=== PATIENT | female | born 1945 | race Caucasian/White ===

== ENCOUNTER 2016-07-09 05:51 | Outpatient (CLI) | payer MEDICARE ==
[~2016-07-09] VITALS: Ht 158.8 cm; Wt 83.2 kg
--- NOTE | ~2016-07-09 | HEMODYNAMI ---
PATIENT:BRADEN FITCH MEDICAL RECORD: [id number] : 43 LOCATION:DKatjaCAT ADMISSION DATE: 07/09/16 Generatedon:07/09/20168:59 Patient name: BRADEN FITCH Patient #: [id number] SSN: : 1945 Date of study: 07/09/2016 Page: Of Hemodynamic Procedure Report Patient Data Patient Demographics Procedure consent was obtained First Name: BRADEN Gender: Female Last Name: LITTLE : 1945 [facility] Initial: J Age: 71 year(s) Patient #: [id number] Race: Additional ID: [id number] Contact details Address: [address] [place], [place] [id number] State: [place] City: [place] Zip code: [address] Past Medical History Allergies Allergen Reaction Date Comments Reported Sulfa drugs 08/13/2014 Codeine 08/13/2014 Morphine 08/13/2014 Admission Admission Data Admission Date: 07/09/2016 Admission Time: 5:51 Admit Source: Other Insurance Payor: Medicare Height (in.): 62 BSA: 1.84 (m2) Height (cm.): 157.48 BMI: 33.47 (kg/m2) Weight (lbs.): 183 Weight (kg.): 83.01 Lab Results Lab Result Date: 07/09/2016 Lab Result Time: 0:00 Biochemistry Name Units Result Min Max Creatinine mg/dl 0.5 -*(----)-- 0.6 1.3 CBC Name Units Result Min Max Hemoglobin g/dl 12.1 *-(----)-- 13.5 17.5 Procedure Procedure Types Cath Procedure Diagnostic Procedure [facility] w/Coronaries PCI Procedure PTCA Initial Procedure Description Procedure Date Procedure Date: 07/09/2016 Procedure Start Time: 8:42 Procedure End Time: 8:58 Procedure Staff Name Function Yehuda Stevens MD Performing Physician Graham Dorantes RT Scrub Armond Metz RN Nurse Shannon Wiley RT Monitor Wellington Rodriguez RT Furnace And Wash Equipment Operator Procedure Data Cath Procedure Fluoroscopy Diagnostic fluoroscopy Total fluoroscopy Time: 3.3 time: 3.3 min min Diagnostic fluoroscopy Total fluoroscopy dose: 750 dose: 750 mGy mGy Contrast Material Contrast Material Type Amount (ml) Isovue 300 93 Entry Location Entry Primary Successful Side Size Upsize Upsize Entry Closure Dennis ccessful Closure Location (Fr) 1 (Fr) 2 (Fr) Remarks Device Remarks Radial Right 6 Fr Mechanical artery Short Compression Estimated blood loss: 10 ml Diagnostic catheters Device Type Used For End Catheter Placement Terumo 5Fr Sunnyside 110cm LV Angiography catheter Terumo 5Fr Sunnyside 110cm Right Coronary catheter Angiography Procedure Complications No complications Procedure Medications Medication Administration Route Dosage Oxygen NC 2 l/min Lidocaine 2% added to field 20 Heparin Flush Bag added to field 2 bags (1000units/500ml NS) 0.9% NaCl I.V. 100 ml/hr Benadryl I.V. 50 mg Versed I.V. 1 mg Fentanyl I.V. 50 mcg Versed I.V. 1 mg Fentanyl I.V. 50 mcg Radial Cocktail I.A. 1 syringe (Verapomil 2mg/Nitro 400mcg/Heparin 1500units) Versed I.V. 1 mg Fentanyl I.V. 50 mcg Fentanyl I.V. 50 mcg Heparin Bolus I.V. 4000 units Versed I.V. 1 mg Hemodynamics Rest BSA: 1.84 (m2) HGB: 12.1 (g/dl) O2 Consumption: Estimated: 156.18 (ml/min) O2 Co nsumption indexed: Estimated:84.88 (ml/min/m) Heart Rate: 52 (bpm) Snapshots Pre Cath Intra NCS Post Cath Vital Signs Time Heart Resp SPO2 etCO2 [id number] NIBP (mmHg) Rhythm Pain Sedation Rate (ipm) (%) (mmHg) (mmHg) Status Level (bpm) 8:24:04 53 17 99 0 0 164/66(85) NSR 0 (11) 10(A) , No pain 8:29:13 54 21 98 0 0 182/100(139) NSR 0 (11) 10(A) , No pain 8:33:25 52 19 99 0 0 167/89(141) NSR 0 (11) 10(A) , No pain 8:37:43 53 19 97 0 0 161/97(120) NSR 0 (11) 10(A) , No pain 8:41:59 51 16 99 0 0 142/91(115) NSR 0 (11) 10(A) , No pain 8:46:17 60 17 96 0 0 135/80(101) NSR 0 (11) 9(A) , No pain 8:50:29 60 16 94 0 0 134/79(108) NSR 0 (11) 9(A) , No pain 8:54:38 62 16 95 0 0 140/80(115) NSR 0 (11) 9(A) , No pain 8:57:33 59 16 96 0 0 147/89(124) NSR 0 (11) 10(A) , No pain Medications Time Medication Route Dose Verified Delivered Reason Notes Effectiveness by by 8:17:05 Oxygen NC 2 l/min Yehuda Buffie used for Hilda Metz RN procedure 8:17:16 Lidocaine 2% added 20ml Yehudaaisha Blackman for local to vial Hilda Stevens MD anesthetic field 8:17:24 Heparin Flush added 2 bags Yehuda Blackman used for Bag to Hilda Stevens MD procedure (1000units/500ml field NS) 8:17:35 0.9% NaCl I.V. 100 Yehuda Leahy Per physician ml/hr Hilda Metz RN 8:17:44 Benadryl I.V. 50 mg Yehuda Leahy used for Hilda Metz RN procedure 8:39:15 Versed I.V. 1 mg Yehuda Leahy for sedation Hilda Metz RN 8:39:21 Fentanyl I.V. 50 mcg Yehuda Leahy for sedation Hilda Metz RN 8:44:43 Versed I.V. 1 mg Yehuda Nazarioie for sedation Hilda Metz RN 8:44:47 Fentanyl I.V. 50 mcg Yehuda Leahy for sedation Hilda Metz RN 8:45:02 Radial Cocktail I.A. 1 Yehuda Blackman for (Verapomil syringe Hilda Stevens MD vasodilation 2mg/Nitro 400mcg/Heparin 1500units) 8:47:08 Versed I.V. 1 mg Yehuda Blackman for sedation Hilda Stevens MD 8:47:11 Fentanyl I.V. 50 mcg Yehuda Leahy for sedation Hilda Metz RN 8:47:14 Fentanyl I.V. 50 mcg Yehuda Lehay for sedation Hilda Metz RN 8:51:09 Heparin Bolus I.V. 4000 Yehuda Leahy for verif ied units Hilda Metz RN anticoagulation with dr stevens 8:53:13 Versed I.V. 1 mg Yehuda Leahy for sedation Hilda Metz RN Procedure Log Time Note 8:00:10 Informed consent obtained and on chart 8:00:38 Wellington Rodriguez RT(R) sent for patient. Start room use. 8:00:40 Time tracking: Regular hours 8:00:44 Plan of Care:Hemodynamics will remain stable., Cardiac rhythm will remain stable., Comfort level will be maintained., Respiratory function will remain adequate., Patient/ family verbilizes understanding of procedure., Procedure tolerated without complication., Recovers from procedure without complications.. 8:00:49 ACC Patient presents with Unstable Angina CCS Anginal Class 3--Marked limitation of physical activity, angina occurs with ordinary activity.. 8:09:47 Patient received from Outpatients to [facility] 2 Alert and oriented. Tansferred to table in Supine position. 8:09:48 Warm blankets applied, and mariluz hugger turned on for patient comfort. 8:09:48 Correct patient and procedure confirmed by team. 8:09:49 ECG and BP/O2 sat monitors applied to patient. 8:11:32 Full Disclosure recording started 8:13:19 H&P Date Dictated: 07/06/2016 Within 30 days and on chart., H&P Addendum completed by physician on day of procedure. (MUST COMPLETE FOR ALL OUTPATIENTS). 8:13:22 Pre-procedure instructions explained to patient. 8:13:23 Pre-op teaching completed and patient verbalized understanding. 8:13:24 Family in waiting room. 8:13:25 Patient NPO since Midnight. 8:13:30 Previous problem with sedation/anesthesia? No ? 8:13:32 Snore? Yes 8:13:33 Sleep apnea? No 8:13:34 Deviated septum? No 8:13:35 Opens mouth fully? Yes 8:13:35 Sticks out tongue? Yes 8:13:37 Airway obstruction? No ? 8:13:40 Dentures? Yes In 8:14:00 Is the patient allergic to Iodine/contrast media? No. 8:14:01 Is patient on blood thinner?Yes 8:14:04 ACC The patient was administered the following blood thiners within the last 24 hours: ACCPlavix 8:14:07 Patient diabetic? No. 8:14:11 Pre procedure: right dorsailis pedis pulse 2+ Normal; easily identifiable; not easily obliterated 8:14:19 Patient pain scale 0/10 ?. 8:14:24 IV patent on arrival in left hand with 0.9% NaCl at [facility]. 8:14:44 Lab Result : Creatinine 0.5 mg/dl 8:14:44 Lab Result : Hemoglobin 12.1 g/dl 8:14:50 Lab results completed and on chart. 8:14:55 Right groin area was prepped with chlora-prep and draped in sterile fashion 8:14:56 Alarms reviewed by R. N. 8:14:57 Sharps counted by scrub and verified by R.N. 8:15:19 Acist Syringe opened to sterile field. 8:15:19 Bag Decanter opened to sterile field. 8:15:20 Cardinal Cath Pack opened to sterile field. 8:15:21 St Amador 260cm J .035 wire opened to sterile field. 8:15:22 Acist Hand Control opened to sterile field. 8:15:22 Acist Manifold opened to sterile field. 8:15:22 Cordis Infinity 5Fr Multipack catheter opened to sterile field. 8:15:23 Tegaderm 4 x 4 opened to sterile field. 8:17:05 Oxygen 2 l/min NC was given by Armond Metz RN; used for procedure; 8:17:16 Lidocaine 2% 20ml vial added to field was given by Yehuda Stevens MD; for local anesthetic; 8:17:24 Heparin Flush Bag (1000units/500ml NS) 2 bags added to field was given by Yehuda Stevens MD; used for procedure; 8:17:35 0.9% NaCl 100 ml/hr I.V. was given by Armond Metz RN; Per physician; 8:17:44 Benadryl 50 mg I.V. was given by Armond Metz RN; used for procedure; 8:22:46 Vital chart was started 8:22:53 Rhythm: sinus rhythm 8:26:00 Admit Source: Other 8:26:05 Insurance Payor : Medicare 8:26:15 Patient Height : 62 inches 8:26:23 Patient Weight : 183 lbs 8:27:25 Physician paged 8:27:42 Baseline sample Acquired. 8:28:03 Zero performed for pressure channel P1 8:28:17 Zero performed for pressure channel P1 8:38:32 Final Timeout: patient, procedure, and site verified with staff and physician. All members of the team are in agreement. 8:38:35 Right groin site verified by team. 8:38:38 Physical assessment completed. ASA score P 2 - A patient with mild systemic disease as per Yehuda Stevens MD. 8:38:41 Sedation plan: IV Moderate Sedation Versed, Fentanyl 8:39:15 Versed 1 mg I.V. was given by Armond Metz RN; for sedation; 8:39:21 Fentanyl 50 mcg I.V. was given by Armond Metz RN; for sedation; 8:40:32 Procedure started. 8:42:33 Local anesthetic to right radial artery with Lidocaine 2% by Yehuda Stevens MD.INITIAL ACCESS ONLY 8:43:57 A 6 Fr Short sheath was inserted into the Right Radial artery 8:44:25 Terumo 6Fr Slender Glidesheath opened to sterile field. 8:44:39 A Terumo 5Fr Sunnyside 110cm catheter was advanced over the wire and used for LV Angiography. 8:44:43 Versed 1 mg I.V. was given by Armond Metz RN; for sedation; 8:44:47 Fentanyl 50 mcg I.V. was given by Armond Metz RN; for sedation; 8:45:02 Radial Cocktail (Verapomil 2mg/Nitro 400mcg/Heparin 1500units) 1 syringe I.A. was given by Yehuda Stevens MD; for vasodilation; 8:45:28 A Terumo 5Fr Sunnyside 110cm catheter was advanced over the wire and used for Right Coronary Angiography. 8:46:42 Medtronic Launcher 6Fr EBU 3.5 guide catheter opened to sterile field. 8:47:05 Catheter removed. 8:47:08 Versed 1 mg I.V. was given by Yehuda Stevens MD; for sedation; 8:47:11 Fentanyl 50 mcg I.V. was given by Buffie Metz RN; for sedation; 8:47:14 Fentanyl 50 mcg I.V. was given by Armond Metz RN; for sedation; 8:47:30 6 Fr EBU 3.5 guide catheter was inserted over the wire 8:47:51 LCA angiography performed. 8:49:22 Grijalva Whisper J 300cm 0.014 guide wire opened to sterile field. 8:49:23 Scutum BasixCompak Inflation Kit opened to sterile field. 8:50:13 ACC PCI Site: OM1 has 75% stenosis. 8:50:16 ACC Pre-intervention LONG Flow is 3. 8:50:24 Whisper wire advanced. 8:51:09 Heparin Bolus 4000 units I.V. was given by Armond Metz RN; for anticoagulation; verified with dr stevens 8:51:56 Inflation number: 1 A Picabo Sci Aurora 2.5 X 15 balloon was prepped and advanced across the 1st Ob Nella, then inflated to 17 PAULETTE for 0:10 (min:sec). 8:52:30 Inflation number: 2 The Picabo Sci Aurora 2.5 X 15 balloon was reinflated across the 1st Ob Nella, to 17 PAULETTE for 0:07 (min:sec). 8:52:47 ACC Post-intervention LONG Flow is 3. 8:52:52 Balloon removed over the wire. 8:52:53 Wire removed. 8:52:54 Guide catheter removed. 8:53:02 Sheath removed intact; hemostasis achieved with Mechanical Compression to the Right Radial artery. 8:53:04 Procedure ended.(Physican Out) 8:53:13 Versed 1 mg I.V. was given by Armond Metz RN; for sedation; 8:53:55 Fluoroscopy time 03.30 minutes. 8:54:01 Fluoroscopy dose: 750 mGy 8:54:01 Flurop Dose total: 750 8:54:24 Contrast amount:Isovue 300 93ml. 8:54:25 Sharps counted by scrub and verified by R.N. 8:54:31 TR band inflated with 12cc of air. 8:54:32 Insertion/operative site no bleeding no hematoma. 8:54:39 Post right radial artery:stable, clean and dry 8:54:40 Post Procedure Pulses reassessed and unchanged 8:54:46 Post-procedure physical assessment completed. ASA score P 2 - A patient with mild systemic disease as per Yehuda Stevens MD. 8:54:48 Post procedure rhythm: unchanged. 8:54:51 Estimated blood loss: 10 ml 8:54:52 Post procedure instruction explained to patient.Patient verbalizes understanding. 8:54:52 Patient needs reinforcement of post procedure teaching. 8:54:59 Procedure type changed to Cath procedure, Diagnostic procedure, LHC, LHC w/Coronaries, PCI procedure, PTCA Initial 8:55:04 Procedure Complication : No complications 8:55:06 See physician's report for complete and final results. 8:55:25 Report given to Post Procedure Room. 8:55:28 Patient transfered to Post Procedure Room with Stretcher. 8:56:05 Procedure and supply charges have been captured, reviewed, submitted and are correct. 8:58:38 Vital chart was stopped 8:58:40 Procedure ended. 8:58:40 Full Disclosure recording stopped 8:58:59 End room use (Document Last) Intervention Summary Intervention Notes Time ActionType Lesion and Equipment Action# Pressure Duration Attributes Used 8:51:56 Inflate 1st Ob Nella Picabo 1 17 00:10 balloon Sci Aurora 2.5 X 15 balloon 8:52:30 Reinflate 1st Ob Nella Picabo 2 17 00:07 balloon Sci Aurora 2.5 X 15 balloon Device Usage Item Name Manufacture Quantity Catalog Number Hospital Part Current Mini mal Lot# / Charge Number Stock Stock Serial# Code Acist Acist 1 [id number] 084344 [id number] 20 Syringe [employer] Inc Bag Microtek 1 2002S 159005 75424 163475 5 Decanter [employer] Inc. Cardinal Cardinal 1 [id number] 146356 30857 294628 [address] Amador 1 [id number] 275108 201340 251243 30 260cm J .035 wire Acist Hand Acist 1 27022 844815 380175 784823 5 Control Medical Systems Inc Acist Acist 1 52553 515858 858347 841032 5 Manifold Medical Systems Inc Cordis Cardinal 1 [id number] 681394 72977 511028 30 Microtune 5Fr Multipack catheter Tegaderm 4 3M 1 1626W 437353 964637 390796 5 x 4 Terumo 6Fr Terumo 1 [id number] 507912 720989 478763 40 Slender Glidesheath Terumo 5Fr Terumo 1 61-0723 915295 901612 775115 5 Sunnyside 110cm catheter Medtronic Medtronic 1 [id number] 917386 74686 590666 3 Launcher 6Fr EBU 3.5 guide catheter Grijalva Grijalva 1 [id number] 711448 219811 474886 5 Whisper J Vascular 300cm [address] [facility] 1 [id number] 657233 414488 953975 15 [facility] Medical Inflation Kit Picabo Sci Picabo 1 [id number] 603803 520329 514885 1 [id number] Sprig Toys 2.5 X 15 balloon Signature Audit [place] Stage Time Signature Unsigned Intra-Procedure 07/09/2016 Shannon 8:59:25 AM Counts RT(R) Signatures Monitor : Shannon Signature : Counts RT Date : Time : [place] [id number] [place] [address]
[~2016-07-09 05:51] MED LIST: BAYER CHEWABLE81 MG PO; CELEXA10 MG PO; CELEXA40 MG PO; CRESTOR10 MG PO; DIOVAN HCT 160/1 TAB PO; DIOVAN160 MG PO; FLUTICASONE PRO16 GM NS; KLOR-CON20 MEQ/PKT PO; LASIX40 MG PO; LEVOTHROID150 MCG PO; LEVOXYL125 MCG PO; LINZESS290 MCG PO; MOBIC7.5 MG PO; PLAVIX75 MG PO; PROTONIX40 MG PO; SOMA350 MG PO; TOPROL XL50 MG PO; ULTRAM50 MG PO; VITAMIN D31000 UNIT; XANAX0.5 MG PO; ZETIA10 MG PO
[2016-07-09 07:02] VITALS: BP 140/79; Ht 158.8 cm; Wt 83.2 kg
[2016-07-09 07:35] LABS: BASOPHILS 0.2 % (0.0-2.0); EOSINOPHILS 0.7 % (0-7); HEMATOCRIT 37.2 % (36.0-48.0); HEMOGLOBIN 12.1 g/dL (12-16); IMMATURE GRANULOCYTES 0.2 % (0-5); LYMPHOCYTES 32.3 % (15-50); MCH 28.8 pg (26.0-34.0); MCHC 32.5 g/dL (31.0-37.0); MCV 88.6 fL (80.0-100.0); MEAN PLATELET VOLUME 11.2 fL (7.4-10.4); MONOCYTES 8.9 % (2-11); NEUTROPHILS 57.7 % (40-80); PLATELET COUNT 191 10x3/uL (130-400); RDW 13.6 % (11.5-14.5); WBC 5.4 10x3/uL (4.8-10.8)
[2016-07-09 07:48] LABS: CALC OSMOLALITY 280 mosm/kg (275-300); CALCIUM 8.9 mg/dL (8.5-10.1); CARBON DIOXIDE 30.8 mmol/L (21.0-32.0); CHLORIDE - SERUM 102 mmol/L (98-107); CREATININE - SERUM 0.5 mg/dL (0.6-1.3); GLUCOSE 95 mg/dL (74-106); SODIUM 140 mmol/L (136-145); UREA NITROGEN 17 mg/dL (7-18); eGFR NON AFRICAN AMERICAN > 90 mL/min (90-120)
--- NOTE | 2016-07-09 09:25 | NUR ---
SB RATE 55 CHEST PAIN IS DENIED. BP 131/76 TR BAND TO R/WRIST CDI NO BLEEDING NO HEMATOMA NOTED. INSTRUCTED PATIENT TO KEEP RUE STRAIGHT NO BENDING OR FLEXING OF WRIST.
--- NOTE | 2016-07-09 09:51 | NUR ---
VSS WITH CHEST PAIN DENIED TR BAND REMAINS TO R/WRIST CDI NO BLEEDING NO HEMATOMA NOTED INSTRUCTED PATIENT TO KEEP RUE STRAIGHT NO BENDING OR FLEXING OF WRIST
--- NOTE | 2016-07-09 10:00 | NUR ---
NO CHANGE IN ASSESSMENT TR BAND REMAINS TO R/WRIST CDI NO BLEEDING NO HEMATOMA NOTED WILL MONITOR
--- NOTE | 2016-07-09 11:07 | NUR ---
RESTING QUIETLY WITH EYES CLOSED NO DISTRESS NOTED VSS TR BAND TO R/WRIST CDI WILL MONITOR
--- NOTE | 2016-07-09 11:12 | OP ---
PATIENT NAME: BRADEN FITCH MEDICAL RECORD: [id number] :43 LOCATION:D.CAT ADMISSION DATE: SURGEON: VERN COLEMAN MD DATE OF OPERATION: 07/09/2016 PROCEDURES: 1. PTCA, left circumflex, first obtuse marginal. 2. Left heart catheterization. 3. Selective coronary angiography. 4. Left ventriculogram. INDICATION: Angina and coronary artery disease. DESCRIPTION OF THE PROCEDURE: After informed consent was obtained and after detailed explanation of risks, benefits as well as alternative therapies, the patient elected to proceed with angiogram and angioplasty. The right radial area was prepped and draped in normal sterile fashion. The right radial artery was cannulated via modified Seldinger technique with placement of 6-Serbian sheath. All catheters exchanged through this sheath. FINDINGS: Left ventriculogram was performed in standard 30-degree JEFFRIES view, reveals preserved cardiac wall motion, ejection fraction 55%. SELECTIVE CORONARY ANGIOGRAPHY: 1. Left main showed no significant angiographic disease. 2. Left anterior descending has previously placed stents in the LAD and LAD diagonal. These are widely patent with no significant restenosis. No disease elsewise throughout the LAD or its branches. 3. The left circumflex has previously placed stents. Circumflex stents are widely patent. The obtuse marginal has 80% to 90% in-stent restenosis just at the ostium. 4. The right coronary has previously placed stents. These are widely patent with no significant restenosis. No disease elsewise throughout the RCA or its branches. PERCUTANEOUS TRANSLUMINAL CORONARY ANGIOPLASTY: High pressure of the in-stent restenosis in the ostium of the first obtuse marginal. The balloon used was a 2.5 balloon taken to 17 atmospheres. Multiple inflations were made. Result was 0% residual stenosis. OVERALL IMPRESSION: Successful high percutaneous transluminal coronary angioplasty for in-stent restenosis of the circumflex, first obtuse marginal ostium. That was previously stented going from 80% to 90% initial stenosis to 0% residual. TRANSINT:[id number] Voice Confirmation ID: [id number] DOCUMENT ID: [id number] OPERATIVE REPORT [id number] BRADEN FITCH VERN COLEMAN MD at 1112 CC: [id number] DICTATION DATE: 07/09/16 0856 PSYCHOLOGY CLINICIAN: 07/09/16 1020 [facility] [address] [place] [address]
--- NOTE | 2016-07-09 12:00 | NUR ---
1200 CONTINUES TO SLEEP WITH NO DISTRESS NO CHANGE IN ASSESSMENT
--- NOTE | 2016-07-09 12:28 | NUR ---
2 CC AIR REMOVED FROM TR BAND WITH NO BLEEDING NO HEMATOMA NOTED
--- NOTE | 2016-07-09 12:39 | NUR ---
PIV REMOVED FROM LEFT ARM WITH DRESSING APPLIED 2 CC AIR REMOVED FROM TR BAND WITH NO BLEEDING NO HEMATOMA NOTED PATIENT UP TO BATHROOM WITH DISCHARGE IN PROGRESS
--- NOTE | 2016-07-09 12:53 | NUR ---
TR BAND REMOVED WITH NO BLEEDING NO HEMATOMA NOTED DISCHARGE INSTRUCTIONS GONE OVER WITH PATIENT AND FAMILY. LEFT VIA WC TO [facility] FOR DAUGHTER TO DRIVE HOME CHEST PAIN IS DENIED
== END 2016-07-09 12:55 | disposition home or self-care (01) ==
LOC: D.CATH 05:51
PROVIDERS: Internal Medicine Interventional Cardiology
DX: I25.119 Atherosclerotic heart disease of native coronary artery with unspecified angina pectoris (principal); T82.855A Stenosis of coronary artery stent, initial encounter

== ENCOUNTER 2017-05-13 07:43 | Outpatient (CLI) | payer MEDICARE ==
[~2017-05-13] VITALS: Ht 158.8 cm; Wt 83.2 kg
--- NOTE | ~2017-05-13 | HEMODYNAMI ---
PATIENT:BRADEN FITCH MEDICAL RECORD: [id number] : 43 LOCATION:[facility] ADMISSION DATE: 05/13/17 Generatedon:05/13/201711:06 Patient name: BRADEN FITCH Patient #: [id number] SSN: : 1945 Date of study: 05/13/2017 Page: Of Hemodynamic Procedure Report Patient Data Patient Demographics Procedure consent was obtained First Name: BRADEN Gender: Female Last Name: LITTLE : 1945 Middle Initial: J Age: 71 year(s) Patient #: [id number] Race: Additional ID: [id number] Contact details Address: [address] [place], [place] [id number] State: [place] City: [place] Zip code: [address] Past Medical History Allergies Allergen Reaction Date Comments Reported Sulfa drugs 08/13/2014 Codeine 08/13/2014 Morphine 08/13/2014 Codeine 05/13/2017 Sulfa drugs 05/13/2017 Morphine 05/13/2017 Admission Admission Data Admission Date: 05/13/2017 Admission Time: 7:43 Lab Results Lab Result Date: 05/13/2017 Lab Result Time: 0:00 Biochemistry Name Units Result Min Max BUN mg/dl 15 --(--*-)-- 7 18 Creatinine mg/dl 0.6 --(*---)-- 0.6 1.3 CBC Name Units Result Min Max Hemoglobin g/dl 13 -*(----)-- 13.5 17.5 Procedure Procedure Types Cath Procedure Diagnostic Procedure LHC LHC w/Coronaries PCI Procedure Coronary Atherectomy Atherectomy w/Stent Coronary Initial Miscellaneous Procedures Moderate Sedation up to 15 minutes Moderate Sedation up to 45 minutes Procedure Description Procedure Date Procedure Date: 05/13/2017 Procedure Start Time: 9:53 Procedure Staff Name Function Albin Merrill RT Monitor Sanjiv Gardner RT Scrub Troy Soriano RN Nurse Yehuda Stevens MD Performing Physician Procedure Data Cath Procedure Fluoroscopy Diagnostic fluoroscopy Total fluoroscopy Time: 4.1 time: 4.1 min min Diagnostic fluoroscopy Total fluoroscopy dose: 450 dose: 450 mGy mGy Contrast Material Contrast Material Type Amount (ml) Isovue 300 65 Entry Location Entry Primary Successful Side Size Upsize Upsize Entry Closure Dennis ccessful Closure Location (Fr) 1 (Fr) 2 (Fr) Remarks Device Remarks Radial Right 6 Fr Mechanical artery Short Compression Estimated blood loss: 20 ml Diagnostic catheters Device Type Used For End Catheter Placement DIAGNOSTIC [place] 110cm 5 Procedure Fr catheter ([id number]) Procedure Medications Medication Administration Route Dosage Oxygen NC 2 l/min Heparin Flush Bag added to field 2 bags (1000units/500ml NS) 0.9% NaCl I.V. 100 ml/hr Radial Cocktail added to field 1 syringe (Verapomil 2mg/Nitro 400mcg/Heparin 1500units) Fentanyl I.V. 50 mcg Versed I.V. 1 mg Fentanyl I.V. 50 mcg Versed I.V. 1 mg Radial Cocktail I.A. 1 syringe (Verapomil 2mg/Nitro 400mcg/Heparin 1500units) Fentanyl I.V. 50 mcg Versed I.V. 1 mg Fentanyl I.V. 50 mcg Versed I.V. 1 mg Heparin Bolus I.V. 4000 units Hemodynamics Rest HGB: 13 (g/dl) Heart Rate: 51 (bpm) Pressure Samples Time Site Value (mmHg) Purpose Heart Use Rate(bpm) 9:56 LV 103/16,22 Snapshot 53 Snapshots Pre Cath Intra NCS Post Cath Vital Signs Time Heart Resp SPO2 etCO2 NIBP (mmHg) Rhythm Pain Sedation Rate (ipm) (%) (mmHg) Status Level (bpm) 9:29:00 52 20 98 36.9 179/93(154) NSR 0 (11) 10(A) , No pain 9:34:38 50 17 100 20.3 165/82(146) NSR 0 (11) 10(A) , No pain 9:39:05 51 18 99 38.4 168/82(140) NSR 0 (11) 10(A) , No pain 9:43:35 52 17 98 33.9 163/82(134) NSR 0 (11) 10(A) , No pain 9:49:07 54 18 100 36.9 153/84(125) NSR 0 (11) 10(A) , No pain 9:54:20 50 19 98 35.4 148/80(119) NSR 0 (11) 10(A) , No pain 9:58:30 52 17 97 8.2 102/59(76) NSR 0 (11) 9(A) , No pain 10:03:43 53 18 97 0 105/58(84) NSR 0 (11) 9(A) , No pain 10:27:12 53 18 97 30.1 137/80(118) NSR 0 (11) 9(A) , No pain 10:31:30 50 18 97 0 104/61(70) NSR 0 (11) 9(A) , No pain 10:35:33 50 18 95 0 110/72(87) NSR 0 (11) 9(A) , No pain 10:39:41 50 16 94 0 109/66(82) NSR 0 (11) 9(A) , No pain 10:44:42 51 18 94 11.3 112/61(87) NSR 0 (11) 9(A) , No pain 10:48:52 52 18 96 0 124/66(105) NSR 0 (11) 9(A) , No pain 10:53:06 51 17 96 2.2 116/63(87) NSR 0 (11) 9(A) , No pain 10:57:12 55 19 97 46 122/78(95) NSR 0 (11) 9(A) , No pain 10:58:20 63 18 97 0 125/74(104) NSR 0 (11) 9(A) , No pain 11:02:30 53 21 97 0 96/47(76) NSR 0 (11) 9(A) , No pain Medications Time Medication Route Dose Verified Delivered Reason Note s Effectiveness by by 9:28:53 Oxygen NC 2 l/min Yehuda Simmons Per physician Hilda Soriano RN 9:29:02 Heparin Flush added 2 bags Yheuda Simmons used for Bag to Hilda Soriano shrinker (1000units/500ml field NS) 9:29:17 0.9% NaCl I.V. 100 Yehuda Simmons Per physician ml/hr Hilda Soriano RN 9:29:25 Radial Cocktail added 1 Yehuda Simmons used for (Verapomil to syringe Hilda Soriano RN procedure 2mg/Nitro field 400mcg/Hepari 9:54:09 Fentanyl I.V. 50 mcg Yehuda Simmons for sedation Hilda Soriano RN 9:54:16 Versed I.V. 1 mg Yehuda Simmons for sedation Hilda Soriano RN 9:56:02 Fentanyl I.V. 50 mcg Yehuda Simmons for sedation Hilda Soriano RN 9:56:05 Versed I.V. 1 mg Yehuda Hoppery for sedation Hilda Soriano RN 9:56:18 Radial Cocktail I.A. 1 Yehuda Blackman for (Verapomil syringe Hilda Stevens MD vasodilation 2mg/Nitro 400mcg/Hepari 10:27:55 Fentanyl I.V. 50 mcg Yehuda Simmons for sedation Hilda Soriano RN 10:28:01 Versed I.V. 1 mg Yehuda Simmons for sedation Hilda Soriano RN 10:47:06 Fentanyl I.V. 50 mcg Yehuda Simmons for sedation Hilda Soriano RN 10:47:08 Versed I.V. 1 mg Yehuda Simmons for sedation Hilda Soriano RN 10:49:58 Heparin Bolus I.V. 4000 Yehuda Troy for units Hilda Soriano RN anticoagulation Procedure Log Time Note 8:44:53 Procedure type changed to Cath procedure, Diagnostic procedure, LHC, LHC w/Coronaries, PCI procedure, Coronary Atherectomy, Atherectomy w/Stent Coronary Initial, Miscellaneous Procedures, Moderate Sedation up to 15 minutes, Moderate Sedation up to 45 minutes 9:10:08 Albin FRANK(R) (CV) sent for patient. Start room use. 9:17:09 Time tracking: Regular hours 9:17:13 Plan of Care:Hemodynamics will remain stable., Cardiac rhythm will remain stable., Comfort level will be maintained., Respiratory function will remain adequate., Patient/ family verbilizes understanding of procedure., Procedure tolerated without complication., Recovers from procedure without complications.. 9:20:56 Patient received from Pre/Post Procedure Room to CCL 3 Alert and oriented. Tansferred to table in Supine position. 9:20:58 Correct patient and procedure confirmed by team. 9:20:58 Warm blankets applied, and mariluz hugger turned on for patient comfort. 9:21:00 Signed procedure consent form obtained from patient. 9:21:01 ECG and BP/O2 sat monitors applied to patient. 9:27:37 Vital chart was started 9:28:53 Oxygen 2 l/min NC was administered by Tory Soriano RN; Per physician; 9:29:02 Heparin Flush Bag (1000units/500ml NS) 2 bags added to field was administered by Troy Soriano RN; used for procedure; 9:29:17 0.9% NaCl 100 ml/hr I.V. was administered by Troy Soriano RN; Per physician; 9:29:25 Radial Cocktail (Verapomil 2mg/Nitro 400mcg/Heparin 1500units) 1 syringe added to field was administered by Troy Soriano RN; used for procedure; 9:33:54 Baseline sample Acquired. 9:34:01 Rhythm: sinus bradycardia 9:34:04 Full Disclosure recording started 9:34:21 H&P Date Dictated: 05/03/2017 Within 30 days and on chart., H&P Addendum completed by physician on day of procedure. (MUST COMPLETE FOR ALL OUTPATIENTS). 9:34:24 Pre-procedure instructions explained to patient. 9:34:26 Pre-op teaching completed and patient verbalized understanding. 9:34:29 Family unavailable. 9:34:32 Patient NPO since Midnight. 9:34:47 Patient allergic to Codeine 9:34:52 Patient allergic to Sulfa drugs 9:35:03 Patient allergic to Morphine 9:35:09 Is the patient allergic to Iodine/contrast media? No. 9:35:11 Is patient on blood thinner?Yes 9:35:15 ACC The patient was administered the following blood thiners within the last 24 hours: ACCPlavix 9:35:19 Patient diabetic? No. 9:35:24 Patient not . Patient is over age 55. 9:35:26 ----Pre-sedation anethsthesia assessment.---- 9:35:28 Previous problem with sedation/anesthesia? No ? 9:35:30 Snore? Yes 9:35:32 Sleep apnea? No 9:35:35 Opens mouth fully? Yes 9:35:35 Deviated septum? No 9:35:36 Sticks out tongue? Yes 9:35:40 Airway obstruction? No ? 9:35:47 Dentures? Yes in tight 9:35:52 Pre procedure: right dorsailis pedis pulse 1+ Palpable, but thready & weak; easily obliterated 9:36:09 IV patent on arrival in right antecubital with 0.9% NaCl at KVO. 9:40:11 Lab Result : Hemoglobin 13 g/dl 9:40:11 Lab Result : Creatinine 0.6 mg/dl 9:40:11 Lab Result : BUN 15 mg/dl 9:40:15 Lab results completed and on chart. 9:40:20 Right Radial & Right Groin area was prepped with chlora-prep and draped in sterile fashion 9:40:21 Alarms reviewed by R. N. 9:40:22 Sharps counted by scrub and verified by R.N. 9:40:36 Use device set Radial Dx 9:40:37 ACIST Syringe (93185) opened to sterile field. 9:40:39 Medline Cath Pack ([id number]) opened to sterile field. 9:40:40 Bag Decanter (2002S) opened to sterile field. 9:40:41 SHEATH 6FR Slender ([id number]) opened to sterile field. 9:40:43 ACIST Hand Control (89324) opened to sterile field. 9:40:43 DIAGNOSTIC WIRE .035 260cm J wire (444761) opened to sterile field. 9:40:44 ACIST Manifold (39566) opened to sterile field. 9:40:45 MBrace Wrist Support ([id number]) opened to sterile field. 9:40:45 Tegaderm 4 x 4 (1626W) opened to sterile field. 9:48:33 Zero performed for pressure channel P1 9:50:49 --------ALL STOP TIME OUT------ 9:50:49 Physician arrived 9:50:50 Final Timeout: patient, procedure, and site verified with staff and physician. All members of the team are in agreement. 9:50:55 Right Radial & Right Groin site verified by team. 9:50:59 Physical assessment completed. ASA score P 2 - A patient with mild systemic disease as per Yehuda Stevens MD. 9:51:04 Sedation plan: IV Moderate Sedation Medication:Versed, Fentanyl 9:53:46 Procedure started. 9:53:52 Local anesthetic to right radial artery with Lidocaine 2% by Yehuda Stevens MD.INITIAL ACCESS ONLY 9:54:09 Fentanyl 50 mcg I.V. was administered by Troy Soriano RN; for sedation; 9:54:16 Versed 1 mg I.V. was administered by Troy Soriano RN; for sedation; 9:54:44 A 6 Fr Short sheath was inserted into the Right Radial artery 9:55:51 A DIAGNOSTIC [place] 110cm 5 Fr catheter (187786) was advanced over the wire and used for Procedure. 9:56:02 Fentanyl 50 mcg I.V. was administered by Troy Soriano RN; for sedation; 9:56:05 Versed 1 mg I.V. was administered by Troy Soriano RN; for sedation; 9:56:18 Radial Cocktail (Verapomil 2mg/Nitro 400mcg/Heparin 1500units) 1 syringe I.A. was administered by Yehuda Stevens MD; for vasodilation; 9:56:25 LV gram done using JEFFRIES 9:56:26 LV hemodynamics recorded. 9:56:32 EF : 55 % 9:56:59 LCA angiography performed. 9:58:39 RCA angiography performed. 10:01:40 PATIENT LEFT ON TABLE AND WILL BE MOVED TO ROOM 2 FOR LASER TO THE LAD STENT 10:02:05 Catheter removed. 10:06:55 Procedure paused in room Cath3 10:06:56 Full Disclosure recording stopped 10:08:09 Procedure resumed in room Cath2 10:08:37 PREPARING TO MOVE PATIENT 10:24:31 PATIENT MOVED AND RE-DRAPED 10:26:01 CHOICE PT Extra Support 182cm wire ([id number]) opened to sterile field. 10:26:02 INFLATOR Merit BasixCompak (JV1820) opened to sterile field. 10:26:06 Vital chart was started 10:27:55 Fentanyl 50 mcg I.V. was administered by Troy Soriano RN; for sedation; 10:28:01 Versed 1 mg I.V. was administered by Troy Soriano RN; for sedation; 10:31:22 Zero performed for pressure channel P1 10:34:34 GUIDE 6FR XBLAD 3.5 catheter ([id number]) opened to sterile field. 10:42:57 DR. STEVENS DONE IN ROOM 2 10:43:10 --------ALL STOP TIME OUT------ 10:43:10 Physician arrived 10:43:11 Final Timeout: patient, procedure, and site verified with staff and physician. All members of the team are in agreement. 10:43:15 Right Radial & Right Groin site verified by team. 10:43:20 Physical assessment completed. ASA score P 2 - A patient with mild systemic disease as per Yehuda Stevens MD. 10:43:26 Sedation plan: IV Moderate Sedation Medication:Versed, Fentanyl 10:46:10 SHEATH HAS REMAINED FLUSHED 10:46:22 6 Fr XBLAD 3.5 guide catheter was inserted over the wire 10:47:06 Fentanyl 50 mcg I.V. was administered by Troy Soriano RN; for sedation; 10:47:08 Versed 1 mg I.V. was administered by Troy Soriano RN; for sedation; 10:48:29 CHOICE SUPPORT wire advanced. 10:48:31 Wire advanced across lesion. 10:49:58 Heparin Bolus 4000 units I.V. was administered by Troy Soriano RN; for anticoagulation; 10:51:05 A LASER ELCA 0.9 Rx atherectomy catheter (861645) was prepped and advanced across the Prox LAD lesion. Pass Number: 1 10:51:33 A LASER ELCA 0.9 Rx atherectomy catheter ([id number]) was prepped and advanced across the Prox LAD lesion. Pass Number: 2 10:52:07 A LASER ELCA 0.9 Rx atherectomy catheter (118464) was prepped and advanced across the Prox LAD lesion. Pass Number: 3 10:52:36 A LASER ELCA 0.9 Rx atherectomy catheter (189316) was prepped and advanced across the Prox LAD lesion. Pass Number: 4 10:54:30 LASER REMOVED 10:55:53 Inflation Number: 1 A KVNG RX 3.0 x 08 stent ([id number]) was prepped and advanced across the Prox LAD. The stent was deployed at 17 PAULETTE for 0:10 (min:sec). 10:56:58 Wire removed. 10:56:59 Guide catheter removed. 10:57:07 TR BAND Standard ([id number]) opened to sterile field. 10:57:21 Sheath removed intact; hemostasis achieved with Mechanical Compression to the Right Radial artery. 10:57:25 Procedure ended.(Physican Out) 10:58:40 Fluoroscopy time 04.10 minutes. 10:58:50 Fluoroscopy dose: 450 mGy 10:58:50 Flurop Dose total: 450 10:59:12 Contrast amount:Isovue 300 65ml. 10:59:42 Sharps counted by scrub and verified by R.N. 11:02:33 TR band inflated with 10cc of air. 11:02:35 Insertion/operative site no bleeding no hematoma. 11:02:42 Post right radial artery:stable 11:02:54 Post-procedure physical assessment completed. ASA score P 2 - A patient with mild systemic disease as per Yehuda Stevens MD. 11:03:02 Post procedure rhythm: unchanged., sinus rhythm 11:03:08 Estimated blood loss: 20 ml 11:03:10 Patient needs reinforcement of post procedure teaching. 11:03:10 Post procedure instruction explained to patient.Patient verbalizes understanding. 11:03:12 Procedure and supply charges have been captured, reviewed, submitted and are correct. 11:03:15 Vital chart was stopped 11:03:16 See physician's report for complete and final results. 11:03:18 Report given to Pre/Post Procedure Room. 11:03:24 Patient transfered to Pre/Post Procedure Room with Stretcher. 11:03:32 End room use (Document Last) Intervention Summary Intervention Notes Time ActionType Lesion and Equipment Used Action# Pressure Duration Attributes 10:51:05 Atherectomy Prox LAD LASER ELCA 0.9 00:10 Rx atherectomy catheter (625554) 10:51:33 Atherectomy Prox LAD LASER ELCA 0.9 00:10 Rx atherectomy catheter (661051) 10:52:07 Atherectomy Prox LAD LASER ELCA 0.9 00:00 Rx atherectomy catheter (513971) 10:52:36 Atherectomy Prox LAD LASER ELCA 0.9 00:10 Rx atherectomy catheter (206313) 10:55:53 Place stent Prox LAD KVNG RX 3.0 x 1 17 00:10 08 stent ([id number]) Device Usage Item Name Manufacture Quantity Catalog Number Hospital Part Current M inimal Lot# / Charge Number Stock Stock Serial# Code ACIST Syringe Acist 1 37521 357110 516805 700233 2 0 (88560) Medical Systems Inc Medline Cath Cardinal 1 [id number] 360528 53261 031523 5 Pack Health ([id number]) Bag Decanter Microtek 1 989725 04898 409729 5 () Medical Inc. SHEATH 6FR Terumo 1 [id number] 152481 903802 775016 4 0 Slender ([id number]) DIAGNOSTIC [facility] [place] 1 614126 889154 841031 738062 3 0 WIRE .035 260cm J wire (130374) ACIST Hand Acist 1 75184 931425 134390 548075 5 Control Medical (50835) Systems Inc ACIST Manifold Acist 1 02275 339178 246531 313245 5 (59951) Medical Systems Inc Tegaderm 4 x 4 3M 1 1626W 234147 082387 623348 5 (1626W) MBrace Wrist Advanced 1 140-0250-00 842212 26791 976712 5 Support Vascular ([id number]) Dynamics DIAGNOSTIC Terumo 1 40-5013 727736 388519 260094 5 [place] 110cm 5 Fr catheter (298522) CHOICE PT [place] 1 [id number] 274449 167548 000627 5 Extra Support Scientific 182cm wire (2730741K0) INFLATOR Merit Merit 1 FJ6029 633931 026448 330652 1 5 cacaoTV (SG2460) GUIDE 6FR Cardinal 1 37837852 528757 234381 341949 1 0 XBLAD 3.5 Health catheter (53586125) LASER ELCA 0.9 Tejinder 1 110-004 279266 807515 191201 5 Rx atherectomy Healthcare catheter (865807) (908280) KVNG RX 3.0 x Medtronic 1 [id number] 096851 0640991 732671 5 [id number] 08 stent ([id number]) TR BAND Terumo 1 NAD44-WVD 551656 231678 937714 4 0 Standard ([id number]) Signature Audit [place] Stage Time Signature Unsigned Intra-Procedure 05/13/2017 Albin Merrill RT(R) 11:03:56 AM RT(R) (CV) (CV) 05/13/2017 11:05:24 AM Intra-Procedure 05/13/2017 Albin Merrill 11:06:30 AM RT(R) (CV) Signatures Monitor : Albin Merrill RT Signature : Date : Time : [address] [place] [address]
[2017-05-13] MEDS ORDERED: POTASSIUM CHLO10 ME1 PO (08:05)
[2017-05-13 08:16] VITALS: BP 159/58; Ht 158.8 cm; Wt 83.2 kg
[2017-05-13 08:42] LABS: BASOPHILS 0.2 % (0-2); CALC OSMOLALITY 280 mosm/kg (275-300); CALCIUM 8.8 mg/dL (8.5-10.1); CARBON DIOXIDE 29.1 mmol/L (21.0-32.0); CHLORIDE - SERUM 103 mmol/L (98-107); CREATININE - SERUM 0.6 mg/dL (0.6-1.3); GLUCOSE 89 mg/dL (74-106); HEMATOCRIT 38.7 % (36.0-48.0); IMMATURE GRANULOCYTES 0.2 % (0-5); LYMPHOCYTES 34.4 % (15-50); MCH 29.2 pg (26.0-34.0); MCHC 33.6 g/dL (31.0-37.0); MONOCYTES 10.2 % (2-11); PLATELET COUNT 177 10x3/uL (130-400); POTASSIUM - SERUM 3.8 mmol/L (3.5-5.1); RBC 4.45 10x6/uL (4.00-5.40); RDW 13.2 % (11.5-14.5); SODIUM 141 mmol/L (136-145); UREA NITROGEN 15 mg/dL (7-18); WBC 4.9 10x3/uL (4.8-10.8); eGFR NON AFRICAN AMERICAN > 90 mL/min (90-120)
--- NOTE | 2017-05-13 11:30 | NUR ---
ROOM AIR, NO RESP DISTRESS NOTED. RIGHT ARM TR BAND CDI, NO BLEEDING OR HEMATOMA NOTED. NO C/O PAIN OR NAUSEA. VSS. CALL LIGHT WITHIN REACH.
--- NOTE | 2017-05-13 12:00 | NUR ---
RIGHT WRIST TR BAND CDI, NO BLEEDING OR HEMATOMA NOTED. ROOM AIR, NO RESP DISTRESS. NO C/O PAIN OR NAUSEA. VSS. WILL CONTINUE TO MONITOR CLOSELY.
--- NOTE | 2017-05-13 14:34 | NUR ---
1300 RESTING WITH EYES CLOSED. ROOM AIR. VITALS ALL WNL. R WRIST TR BAND C/D/I W NO HEMATOMA OR BLEEDING. 1415 PIV REMOVED FROM R AC WITH BANDAID APPLIED. 2CC AIR REMOVED FROM R WRIST TR BAND. WILL MONITOR FOR BLEEDING 1435 2CC AIR REMOVED FROM R WRIST TR BAND. UP TO BEDSIDE TO DRESS.
--- NOTE | 2017-05-13 15:02 | NUR ---
TR BAND REMOVED FROM R WRIST WITH TEAGERM AND COTTON BALL APPLIED. BRACE REAPPLIED. D/C INSTRUCTIONS DISCUSSED WITH PATIENT AT BEDSIDE. WHEELED OUT VIA WHEELCHAIR.
--- NOTE | 2017-05-17 12:17 | OP ---
PATIENT NAME: BRADEN FITCH MEDICAL RECORD: [id number] :43 LOCATION:[facility] ADMISSION DATE: SURGEON: VERN COLEMAN MD DATE OF OPERATION: 05/13/2017 DATE OF SERVICE: 05/13/2017 PROCEDURES: 1. Laser atherectomy LAD. 2. PTCA stent LAD. 3. Left heart catheterization. 4. Selective coronary angiography. 5. Left ventriculogram. INDICATION: Angina and coronary artery disease. PROCEDURE IN DETAIL: After informed consent was obtained and after a detailed explanation of the risks, benefits as well as alternative therapies, the patient elected to proceed with angiogram and angioplasty. The right radial area was prepped and draped in normal sterile fashion. Right radial artery was cannulated via modified Seldinger technique with placement of 6-Estonian sheath. All catheters exchanged through this sheath. FINDINGS: Left ventriculogram was performed in standard 30-degree JEFFRIES view, reveals preserved cardiac wall motion throughout all segments. Overall ejection fraction estimated at 60%. SELECTIVE CORONARY ANGIOGRAPHY: 1. Left main is with no significant angiographic disease. 2. Left anterior descending has previously placed stents. There is 75% in-stent restenosis in the mid vessel. 3. Left circumflex has moderate irregularities, but no flow-limiting stenosis. No restenosis of the previously placed stents in the circumflex. 4. Right coronary has moderate irregularities, but no flow-limiting stenosis. No restenosis of the previously placed stents. PTCA STENT OF THE LAD: Laser atherectomy was performed with a 0.9 mm laser catheter, multiple passes were made. Stenting was undertaken with a 3.0 x 9 mm [place] taken to 17 atmospheres. Result was 0% residual stenosis. OVERALL IMPRESSION: Successful percutaneous transluminal coronary angioplasty stent and laser atherectomy of the left anterior descending going from 75% in-stent restenosis to 0% residual stenosis. TRANSINT:[id number] Voice Confirmation ID: [id number] DOCUMENT ID: [id number] VERN COLEMAN MD at 1217 CC: [id number] DICTATION DATE: 05/13/17 1102 CURB WORKER: 05/13/17 1149 DEP CLI 05/13/17 [place] [id number]
== END 2017-05-13 15:06 | disposition home or self-care (01) ==
LOC: D.CATH 07:43
PROVIDERS: Internal Medicine Interventional Cardiology
DX: I25.119 Atherosclerotic heart disease of native coronary artery with unspecified angina pectoris (principal); R06.00 Dyspnea, unspecified; I10 Essential (primary) hypertension; Z01.812 Encounter for preprocedural laboratory examination
CPT/HCPCS: 93458; C9602

== ENCOUNTER 2018-06-30 08:45 | Outpatient (CLI) | payer MEDICARE ==
[~2018-06-30] VITALS: Ht 158.8 cm; Wt 81.8 kg
--- NOTE | ~2018-06-30 | HEMODYNAMI ---
PATIENT:BRADEN FITCH MEDICAL RECORD: [id number] : 43 LOCATION:[facility] ADMISSION DATE: 06/30/18 Generatedon:06/30/201812:28 Patient name: BRADEN FITCH Patient #: [id number] SSN: : 1945 Date of study: 06/30/2018 Page: Of Hemodynamic Procedure Report Patient Data Patient Demographics Procedure consent was obtained First Name: BRADEN Gender: Female Last Name: LITTLE : 1945 Middle Initial: J Age: 72 year(s) Patient #: [id number] Race: Additional ID: [id number] Contact details Address: [address] [place], [place] [id number] State: [place] City: [place] Zip code: [address] Past Medical History Allergies Allergen Reaction Date Comments Reported Sulfa drugs 08/13/2014 Codeine 08/13/2014 Morphine 08/13/2014 Codeine 05/13/2017 Sulfa drugs 05/13/2017 Morphine 05/13/2017 Other allergy 06/30/2018 Sulfa, Morphine,codeine, hydrocodone. Other allergy 06/30/2018 MORPHINE, HYDROCODONE, SULFA Admission Admission Data Admission Date: 06/30/2018 Admission Time: 8:45 Admit Source: Other Height (in.): 62 BSA: 1.87 (m2) Height (cm.): 157.48 BMI: 34.93 (kg/m2) Weight (lbs.): 191 Weight (kg.): 86.64 Lab Results Lab Result Date: 06/30/2018 Lab Result Time: 9:18 Biochemistry Name Units Result Min Max BUN mg/dl 15 --(--*-)-- 7 18 Creatinine mg/dl 0.6 --(*---)-- 0.6 1.3 CBC Name Units Result Min Max Hematocrit % 37.6 *-(----)-- 42 54 Hemoglobin g/dl 12.6 -*(----)-- 13.5 17.5 Procedure Procedure Types Cath Procedure Diagnostic Procedure [facility] w/Coronaries Sedation Charges Moderate Sedation up to 15 minutes PCI Procedure PTCA PTCA Initial Coronary Atherectomy Atherectomy w/Stent Coronary Initial Procedure Description Procedure Date Procedure Date: 06/30/2018 Procedure Start Time: 12:05 Procedure End Time: 12:27 Procedure Staff Name Function Yehuda Stevens MD Performing Physician Kierra Shetty RT Monitor Graham Dorantes RT Scrub Troy Soriano RN Nurse Procedure Data Cath Procedure Fluoroscopy Diagnostic fluoroscopy Total fluoroscopy Time: 6.5 time: 6.5 min min Diagnostic fluoroscopy Total fluoroscopy dose: dose: 1043 mGy 1043 mGy Contrast Material Contrast Material Type Amount (ml) Isovue 300 108 Entry Location Entry Primary Successful Side Size Upsize Upsize Entry Closure Dennis ccessful Closure Location (Fr) 1 (Fr) 2 (Fr) Remarks Device Remarks Radial Right 6 Fr Mechanical artery Short Compression Estimated blood loss: 10 ml Diagnostic catheters Device Type Used For End Catheter Placement DIAGNOSTIC [place] 110cm 5 Fr catheter ([id number]) Procedure Complications No complications Procedure Medications Medication Administration Route Dosage Oxygen etCO2 Nasal cannula 2 l/min Heparin Flush Bag added to field 2 bags (1000units/500ml NS) 0.9% NaCl I.V. 100 ml/hr Lidocaine 2% added to field 20 Radial Cocktail added to field 1 syringe (Verapomil 2mg/Nitro 400mcg/Heparin 1500units) Fentanyl I.V. 50 mcg Versed I.V. 1 mg Fentanyl I.V. 50 mcg Versed I.V. 1 mg Radial Cocktail I.A. 1 syringe (Verapomil 2mg/Nitro 400mcg/Heparin 1500units) Fentanyl I.V. 50 mcg Versed I.V. 1 mg Heparin Bolus I.V. 4000 units Fentanyl I.V. 50 mcg Versed I.V. 1 mg Fentanyl I.V. 50 mcg Fentanyl I.V. 50 mcg Hemodynamics Rest BSA: 1.87 (m2) HGB: 12.6 (g/dl) O2 Consumption: Estimated: 159.64 (ml/min) O2 Co nsumption indexed: Estimated:85.37 (ml/min/m) Heart Rate: 55 (bpm) Snapshots Pre Cath Intra NCS Post Cath Vital Signs Time Heart Resp SPO2 etCO2 NIBP (mmHg) Rhythm Pain Sedation Rate (ipm) (%) (mmHg) Status Level (bpm) 11:47:44 58 16 99 47 188/76(110) NSR 0 (11) 10(A) , No pain 11:52:10 55 17 100 30.3 165/77(134) NSR 0 (11) 10(A) , No pain 11:56:33 54 17 99 0 148/81(122) NSR 0 (11) 10(A) , No pain 12:00:47 57 17 98 21.2 149/89(108) NSR 0 (11) 10(A) , No pain 12:05:01 55 17 98 0 143/76(113) NSR 0 (11) 10(A) , No pain 12:09:17 69 16 97 16.6 113/66(92) NSR 0 (11) 9(A) , No pain 12:13:21 69 16 97 9.8 128/72(95) NSR 0 (11) 9(A) , No pain 12:17:33 66 16 96 0 132/80(113) NSR 0 (11) 9(A) , No pain 12:21:42 63 16 98 0 125/84(112) NSR 0 (11) 9(A) , No pain 12:25:50 68 16 98 0 142/81(112) NSR 0 (11) 9(A) , No pain Medications Time Medication Route Dose Verified Delivered Reason Not es Effectiveness by by 11:50:26 Oxygen etCO2 2 l/min Yehuda Simmons Per physician Nasal Hilda Soriano RN cannula 11:50:34 Heparin Flush added 2 bags Yehuda Simmons used for Bag to Hilda Soriano RN procedure (1000units/500ml field NS) 11:50:42 0.9% NaCl I.V. 100 Yehuda Simmons Per physician ml/hr Hilda Soriano RN 11:50:53 Lidocaine 2% added 20ml Yehuda Simmons used for to vial Hilda Soriano fire adjuster field 11:51:01 Radial Cocktail added 1 Yehuda Simmons used for (Verapomil to syringe Hilda Soriano fire adjuster 2mg/Nitro field 400mcg/Heparin 1500units) 12:04:17 Fentanyl I.V. 50 mcg Yehuda Simmons for sedation Hilda Soriano RN 12:04:21 Versed I.V. 1 mg Yehuda Troy for sedation Hilda Soriano RN 12:05:37 Fentanyl I.V. 50 mcg Yehuda Troy for sedation Hilda Soriano RN 12:05:41 Versed I.V. 1 mg Yehuda Troy for sedation Hilda Soriano RN 12:06:56 Radial Cocktail I.A. 1 Yehuda Yehuda for (Verapomil syringe Tausharee Stevens MD vasodilation 2mg/Nitro 400mcg/Heparin 1500units) 12:13:12 Fentanyl I.V. 50 mcg Yehuda Troy for sedation Hilda Soriano RN 12:13:16 Versed I.V. 1 mg Yehuda Troy for sedation Hilda Soriano RN 12:13:25 Heparin Bolus I.V. 4000 Yehuda Troy for units Hilda Soriano RN anticoagulation 12:17:12 Fentanyl I.V. 50 mcg Yehuda Troy for sedation Hilda Soriano RN 12:17:16 Versed I.V. 1 mg Yehuda Troy for sedation Hilda Soriano RN 12:19:39 Fentanyl I.V. 50 mcg Yehuda Troy for sedation Hilda Soriano RN 12:23:00 Fentanyl I.V. 50 mcg Yehuda Troy for sedation Hilda Soriano RN Procedure Log Time Note 10:51:21 Informed consent obtained and on chart 10:51:24 Admit Source: Other 10:51:42 Diagnostic Cath status Elective 10:51:44 Time tracking: Regular hours (M-F 7:00 - 5:00) 10:51:48 Plan of Care:Hemodynamics will remain stable., Cardiac rhythm will remain stable., Comfort level will be maintained., Respiratory function will remain adequate., Patient/ family verbilizes understanding of procedure., Procedure tolerated without complication., Recovers from procedure without complications.. 10:52:35 H&P Date Dictated: 06/27/2018 Within 30 days and on chart., H&P Addendum completed by physician on day of procedure. (MUST COMPLETE FOR ALL OUTPATIENTS). 10:54:22 Lab Result : BUN 15 mg/dl 10:54:22 Lab Result : Creatinine 0.6 mg/dl 10:54:22 Lab Result : Hematocrit 37.6 % 10:54:22 Lab Result : Hemoglobin 12.6 g/dl 10:54:24 Lab results completed and on chart. 11:30:56 Troy Soriano RN sent for patient. Start room use. 11:40:44 Patient received from Pre/Post Procedure Room to CCL 1 Alert and oriented. Tansferred to table in Supine position. 11:40:45 Warm blankets applied, and mariluz hugger turned on for patient comfort. 11:40:45 Correct patient and procedure confirmed by team. 11:40:46 ECG and BP/O2 sat monitors applied to patient. 11:40:46 Pre-procedure instructions explained to patient. 11:40:47 Pre-op teaching completed and patient verbalized understanding. 11:40:48 Family in waiting room. 11:40:49 Patient NPO since Midnight. 11:41:09 Patient allergic to Other allergySulfa, Morphine,codeine, hydrocodone. 11:46:27 Vital chart was started 11:50:26 Oxygen 2 l/min etCO2 Nasal cannula was administered by Troy Soriano RN; Per physician; 11:50:34 Heparin Flush Bag (1000units/500ml NS) 2 bags added to field was administered by Troy Soriano RN; used for procedure; 11:50:42 0.9% NaCl 100 ml/hr I.V. was administered by Troy Soriano RN; Per physician; 11:50:47 Baseline sample Acquired. 11:50:50 Rhythm: sinus bradycardia 11:50:51 Full Disclosure recording started 11:50:53 Lidocaine 2% 20ml vial added to field was administered by Troy Soriano RN; used for procedure; 11:50:55 Is patient on blood thinner?Yes 11:50:57 ACC The patient was administered the following blood thiners within the last 24 hours: ACCPlavix 11:51:01 Radial Cocktail (Verapomil 2mg/Nitro 400mcg/Heparin 1500units) 1 syringe added to field was administered by Troy Soriano RN; used for procedure; 11:51:02 PRE LOADED 11:51:04 Patient diabetic? No. 11:55:00 Previous problem with sedation/anesthesia? No ? 11:55:02 Snore? Yes 11:55:04 Sleep apnea? No 11:55:07 Deviated septum? No 11:55:08 Opens mouth fully? Yes 11:55:09 Sticks out tongue? Yes 11:55:49 Airway obstruction? No ? 11:56:24 Dentures? Yes IN 11:56:27 Modified Robert's test Ulnar < 7 seconds 11:56:31 Patient pain scale 0/10 ?. 11:56:35 IV patent on arrival in left hand with 0.9% NaCl at [facility]. 11:56:39 Right Radial & Right Groin area was prepped with chlora-prep and draped in sterile fashion 11:56:40 Alarms reviewed by R. N. 11:56:40 Sharps counted by scrub and verified by R.N. 12:00:24 Zero performed for pressure channel P1 12:00:56 Patient allergic to Other allergyMORPHINE, HYDROCODONE, SULFA 12:01:02 Patient Height : 62 inches 12:01:04 Patient Weight : 191 lbs 12:01:11 Use device set Radial Dx or PCI 12:01:12 ACIST Syringe (65028) opened to sterile field. 12:01:12 Bag Decanter (2002S) opened to sterile field. 12:01:13 ACIST Hand Control (04333) opened to sterile field. 12:01:13 ACIST Manifold (96557) opened to sterile field. 12:01:14 Tegaderm 4 x 4 (1626W) opened to sterile field. 12:01:15 Medline Cath Pack ([id number]) opened to sterile field. 12:01:15 DIAGNOSTIC WIRE .035 260cm J wire (192558) opened to sterile field. 12:01:19 SHEATH 6FR Slender (38-0862) opened to sterile field. 12:04:10 --------ALL STOP TIME OUT------ 12:04:10 Final Timeout: patient, procedure, and site verified with staff and physician. All members of the team are in agreement. 12:04:13 Right Radial & Right Groin site verified by team. 12:04:14 Physical assessment completed. ASA score P 2 - A patient with mild systemic disease as per Yehuda Stevens MD. 12:04:17 Fentanyl 50 mcg I.V. was administered by Troy Soriano RN; for sedation; 12:04:17 Sedation plan: IV Moderate Sedation Medication:Versed, Fentanyl 12:04:19 Procedure started. 12:04:21 Versed 1 mg I.V. was administered by Troy Soriano RN; for sedation; 12:05:05 Local anesthetic to right radial artery with Lidocaine 2% by Yehuda Stevens MD.INITIAL ACCESS ONLY 12:05:37 Fentanyl 50 mcg I.V. was administered by Troy Soriano RN; for sedation; 12:05:41 Versed 1 mg I.V. was administered by Troy Soriano RN; for sedation; 12:06:10 A 6 Fr Short sheath was inserted into the Right Radial artery 12:06:33 A DIAGNOSTIC [place] 110cm 5 Fr catheter ([id number]) was advanced over the wire and used for . 12:06:56 Radial Cocktail (Verapomil 2mg/Nitro 400mcg/Heparin 1500units) 1 syringe I.A. was administered by Yehuda Stevens MD; for vasodilation; 12:07:11 LV gram done using JEFFRIES 12:07:22 Injector settings: Ml/sec: 7, Volume: 15, 12:07:52 EF : 60 % 12:08:11 LCA angiography performed. 12:09:02 INFLATOR Merit BasixCompak (JZ9865) opened to sterile field. 12:09:03 CHOICE PT Extra Support J 300cm guide wire ([id number]) opened to sterile field. 12:09:13 RCA angiography performed. 12:09:39 Catheter exchanged over wire. 12:09:53 GUIDE 6FR XBLAD 3.5 catheter ([id number]) opened to sterile field. 12:11:25 6 Fr XBLAD 3.5 guide catheter was inserted over the wire 12:12:09 CHOICE ES 300 wire advanced. 12:12:32 Wire advanced across lesion. 12:12:43 LASER ELCA 0.9 Rx atherectomy catheter (394199) opened to sterile field. 12:13:12 Fentanyl 50 mcg I.V. was administered by Troy Soriano RN; for sedation; 12:13:16 Versed 1 mg I.V. was administered by Troy Soriano RN; for sedation; 12:13:25 Heparin Bolus 4000 units I.V. was administered by Troy Soriano RN; for anticoagulation; 12:16:03 Laser pass to pLAD with Fluence of 80 and Rate of 40. 12:17:12 Fentanyl 50 mcg I.V. was administered by Troy Soriano RN; for sedation; 12:17:16 Versed 1 mg I.V. was administered by Troy Soriano RN; for sedation; 12:18:07 Laser catheter removed. 12:18:28 Wire removed. 12:18:42 CHOICE PT Extra Support 182cm wire ([id number]) opened to sterile field. 12:19:39 Fentanyl 50 mcg I.V. was administered by Troy Soriano RN; for sedation; 12::41 Wire advanced across lesion. 12:20:41 Place stent Inflation Number: 1 A KVNG RX 3.0 x 12 stent ([id number]) was prepped and advanced across the Mid LAD. The stent was deployed at 17 PAULETTE for 0:10 (min:sec). 12:21:00 Inflation number: 2 The stent balloon was then re-inflated across the Mid LAD to 19 PAULETTE for 0:10 (min:sec). 12:21:24 Wire redirected to OM. 12:22:06 Inflation number: 1 The stent balloon was then re-inflated across the 1st Ob Nella to 9 PAULETTE for 0:00 (min:sec). 12::27 Stent catheter was removed intact over wire. 12::28 Wire removed. 12::29 Guide catheter removed. 12:22:32 TR BAND Standard ([id number]) opened to sterile field. 12:22:47 Procedure ended.(Physican Out) 12:23:00 Fentanyl 50 mcg I.V. was administered by Troy Soriano RN; for sedation; 12:24:18 Sheath removed intact; hemostasis achieved with Mechanical Compression to the Right Radial artery. 12:: Fluoroscopy time 06.50 minutes. 12:: Flurop Dose total: 1043 12:: Fluoroscopy dose: 1043 mGy 12::32 Contrast amount:Isovue 300 108ml. 12::17 TR band inflated with 11cc of air. 12::21 Post-procedure physical assessment completed. ASA score P 2 - A patient with mild systemic disease as per Yehuda Stevens MD. 12:25:23 Post procedure rhythm: sinus rhythm 12:: Estimated blood loss: 10 ml :: Post procedure instruction explained to patient.Patient verbalizes understanding. :: Patient needs reinforcement of post procedure teaching. 12:26:04 Procedure type changed to Cath procedure, Diagnostic procedure, LHC, LHC w/Coronaries, Sedation Charges, Moderate Sedation up to 15 minutes, PCI procedure, PTCA, PTCA Initial, Coronary Atherectomy, Atherectomy w/Stent Coronary Initial 12:26:52 Procedure and supply charges have been captured, reviewed, submitted and are correct. 12:26:54 Procedure Complication : No complications 12::55 Vital chart was stopped 12::55 See physician's report for complete and final results. 12::57 Report given to Pre/Post Procedure Room. 12::59 Patient transfered to Pre/Post Procedure Room with Bed. 12:27:01 Procedure ended. 12:27:01 Full Disclosure recording stopped 12::04 End room use (Document Last) Intervention Summary Intervention Notes Time ActionType Lesion and Equipment Used Action# Pressure Duration Attributes 12:20:41 Place stent Mid LAD KVNG RX 3.0 x 1 17 00:10 12 stent ([id number]) 12:21:00 Reinflate Mid LAD KVNG RX 3.0 x 2 19 00:10 stent 12 stent balloon ([id number]) 12:22:06 Reinflate 1st Ob Nella KVNG RX 3.0 x 1 9 00:00 stent 12 stent balloon ([id number]) Device Usage Item Name Manufacture Quantity Catalog Number Hospital Part Current M inimal Lot# / Charge Number Stock Stock Serial# Code ACIST Syringe Acist 1 62952 605599 656015 903423 2 0 (66525) Medical Systems Inc Bag Decanter Microtek 1 2001S 902942 62105 279568 5 () Medical Inc. ACIST Hand Acist 1 96608 539568 624275 826625 5 Control Medical (47698) Systems Inc ACIST Manifold Acist 1 25359 225159 544728 327377 5 (41706) Medical Systems Inc Tegaderm 4 x 4 3M 1 1626W 793503 701637 923625 5 (1626W) Medline Cath Medline 1 [id number] 594907 77311 579833 5 Pack ([id number]) DIAGNOSTIC St Amador 1 728006 504610 923185 662384 3 0 WIRE .035 260cm J wire (238872) SHEATH 6FR Terumo 1 [id number] 606601 869179 634202 5 Slender (80-1060) DIAGNOSTIC Terumo 1 40-0086 766073 058268 425808 5 [place] 110cm 5 Fr catheter (008888) INFLATOR Merit Merit 1 AT5924 753143 630855 950357 1 5 [facility] (VU2924) CHOICE PT Darrow 1 [id number] 034362 941247 337620 5 Extra Support Scientific J 300cm guide wire ([id number]) GUIDE 6FR Cardinal 1 [id number] 030932 282287 528215 1 0 XBLAD 3.5 Health catheter (29310195) LASER ELCA 0.9 Tejinder 1 110-004 192983 404532 416220 5 Rx atherectomy Healthcare catheter (271066) (376377) CHOICE PT Darrow 1 [id number] 023148 381793 363959 5 Extra Support Scientific 182cm wire (8385562Y3) KVNG RX 3.0 x Medtronic 1 [id number] 008198 9963092 717091 5 [id number] 12 stent ([id number]) TR BAND Terumo 1 [id number] 857691 190925 405797 4 0 Standard ([id number]) Signature Audit Wingina Stage Time Signature Unsigned Intra-Procedure 06/30/2018 Kierra Shetty 12:28:34 PM RT(R) Signatures Monitor : Kierra Shetty Signature : RT Date : Time : [place] [id number] [place] [address]
[~2018-06-30 08:45] MED LIST changes: +POTASSIUM CHLO10 ME1 PO
[2018-06-30] MEDS ORDERED: ULTRAM50 MG PO (09:06)
[2018-06-30] MEDS ORDERED: HYDROCHLOROTHIAZIDE PO (09:08)
[2018-06-30] MEDS ORDERED: OLMESARTAN PO (09:08)
[2018-06-30] MEDS ORDERED: FLUTICASONE PRO16 GM NASAL (09:09)
[2018-06-30 09:18] VITALS: BP 156/63; Ht 158.8 cm; Wt 81.8 kg
[2018-06-30 09:36] LABS: BASOPHILS 0.2 % (0-2); EOSINOPHILS 1.5 % (0-7); HEMATOCRIT 37.6 % (36.0-48.0); HEMOGLOBIN 12.6 g/dL (12-16); LYMPHOCYTES 35.8 % (15-50); MCH 29.4 pg (26.0-34.0); MCHC 33.5 g/dL (31.0-37.0); MCV 87.6 fL (80.0-100.0); MEAN PLATELET VOLUME 10.6 fL (7.4-10.4); MONOCYTES 9.5 % (2-11); PLATELET COUNT 163 10x3/uL (130-400); RBC 4.29 10x6/uL (4.00-5.40); RDW 13.3 % (11.5-14.5); WBC 4.7 10x3/uL (4.8-10.8)
[2018-06-30 09:57] LABS: CALC OSMOLALITY 281 mosm/kg (275-300); CARBON DIOXIDE 28.4 mmol/L (21.0-32.0); CHLORIDE - SERUM 104 mmol/L (98-107); CREATININE - SERUM 0.6 mg/dL (0.6-1.3); GLUCOSE 101 mg/dL (74-106); POTASSIUM - SERUM 3.7 mmol/L (3.5-5.1); SODIUM 141 mmol/L (136-145); UREA NITROGEN 15 mg/dL (7-18); eGFR NON AFRICAN AMERICAN > 90 mL/min (90-120)
--- NOTE | 2018-06-30 12:54 | NUR ---
TR BAND TO RIGHT WRIST IN PLACE. NO BLEEDING/HEMATOMA. CALL LIGHT WITHIN REACH.
--- NOTE | 2018-06-30 13:25 | NUR ---
PT SITTING UP IN BED. SET UP WITH LUNCH TRAY. DENIES NAUSEA. VSS. RIGHT RADIAL TR BAND IN PLACE. NO BLEEDING/HEMATOMA.
--- NOTE | 2018-06-30 13:50 | NUR ---
PT RESTING COMFORTABLY. VSS. TOLERATED LUNCH. NO NAUSEA. RIGHT RADIAL TR BAND IN PLACE. NO BLEEDING/HEMATOMA NOTED.
--- NOTE | 2018-06-30 14:36 | NUR ---
PT PLACED ON BEDPAN. VOIDED WITHOUT DIFFICULTY. NO OTHER NEEDS AT THIS TIME. VSS. RIGHT RADIAL TR BAND IN PLACE. NO HEMATOMA/BLEEDING NOTED.
--- NOTE | 2018-06-30 15:24 | NUR ---
2cc OF AIR REMOVED FROM TR BAND. NO BLEEDING/HEMATOMA NOTED. VSS.
--- NOTE | 2018-06-30 15:38 | NUR ---
3cc OF AIR REMOVED FROM TR BAND. NO BLEEDING/HEMATOMA NOTED. VSS.
--- NOTE | 2018-06-30 15:55 | NUR ---
3cc OF AIR REMOVED FROM TR BAND. NO HEMATOMA/BLEEDING NOTED.
--- NOTE | 2018-06-30 16:05 | NUR ---
LEFT ARM PIV D/C'D WITH CATH TIP INTACT. PT TOLERATED WELL. VSS. 2cc OF AIR REMOVED FROM TR BAND. NO BLEEDING/HEMATOMA NOTED. PT INSTRUCTED TO GET UP AND DRESSED.
--- NOTE | 2018-06-30 16:15 | NUR ---
PT AMBULATED TO RESTROOM. VOIDED WITHOUT DIFFICULTY. TR BAND REMOVED THE REST OF THE WAY. DRESSING APPLIED. NO BLEEDING/HEMATOMA NOTED. WRIST BRACE ON. PT DOES USE RIGHT HAND TO DO TASKS EVEN WHEN REMINDED TO NOT USE RIGHT WRIST AT THIS TIME. INSTRUCTED TO KEEP RIGHT WRIST BRACE ON FOR TWO HOURS AFTER SHE ARRIVES HOME.
--- NOTE | 2018-06-30 16:26 | NUR ---
DISCUSSED DISCHARGE INSTRUCTIONS WITH PT. SHE VOICED UNDERSTANDING.
--- NOTE | 2018-06-30 16:30 | NUR ---
PT TAKEN OUT TO VEHICLE BY WHEELCHAIR. ALL BELONGINGS IN HAND. NO S/S OF DISTRESS NOTED.
--- NOTE | 2018-07-07 12:11 | OP ---
PATIENT NAME: BRADEN FITCH MEDICAL RECORD: [id number] :43 LOCATION:D.CAT ADMISSION DATE: SURGEON: VERN COLEMAN MD DATE OF OPERATION: 06/30/2018 PROCEDURES: 1. Laser atherectomy LAD. 2. PTCA stent LAD. 3. PTCA left circumflex. 4. Left heart catheterization. 5. Selective coronary angiography. 6. Left ventriculogram. INDICATION: Unstable angina and coronary artery disease. PROCEDURE PERFORMED: After informed consent was obtained and after detailed description of risks, benefits as well as alternative therapies, the patient elected to proceed with angiogram and angioplasty. The right femoral area was prepped and draped in normal sterile fashion. Right femoral artery was cannulated via modified Seldinger technique with placement of 6-Portuguese sheath. All catheters exchanged through this sheath. FINDINGS: Left ventriculogram was performed in standard 30-degree JEFFRIES view, reveals good cardiac wall motion throughout all segments. Overall ejection fraction estimated at 55%. SELECTIVE CORONARY ANGIOGRAPHY: 1. Left main is with no significant angiographic disease. 2. Left anterior descending has previously placed stents. There is hazy 75% in-stent restenosis in the mid vessel. 3. Left circumflex has previously placed stents in the circumflex and the obtuse marginal. The obtuse marginal ostium appears to be at least 80% stenosis. 4. The right coronary is widely patent, previously placed stents have no significant restenosis. LASER ATHERECTOMY, PTCA STENT OF THE LAD: Laser catheter, a 0.9 mm catheter was used. Multiple passes made at 80/40, it was then stented with a 3.0 x 12 Kade. The stent balloon was then directed towards the first obtuse marginal. PTCA was performed of the first obtuse marginal. This was not stented as it was already stated in the past as well. Result was 0% residual throughout. OVERALL IMPRESSION: Successful PTCA stent, laser atherectomy of the LAD and successful PTCA of the left circumflex, both in-stent restenosis going from 75% to 80% initial stenosis to 0% residual. TRANSINT:[id number] Voice Confirmation ID: [id number] DOCUMENT ID: [id number] OPERATIVE REPORT [id number] BRADEN FITCH VERN COLEMAN MD at 1211 CC: [id number] DICTATION DATE: 06/30/18 1231 ASSURANCE ENGINEER: 06/30/18 1434 DEP CLI 06/30/18 [place] [id number] [facility] [place] [id number]
== END 2018-06-30 16:30 | disposition home or self-care (01) ==
LOC: D.CATH 08:45
PROVIDERS: Internal Medicine Interventional Cardiology
DX: I25.110 Atherosclerotic heart disease of native coronary artery with unstable angina pectoris (principal)
CPT/HCPCS: 93458; C9602

== ENCOUNTER 2019-03-02 09:58 | Outpatient (CLI) | payer MEDICARE ==
[~2019-03-02] VITALS: Ht 157.5 cm; Wt 82.3 kg
--- NOTE | ~2019-03-02 | HEMODYNAMI ---
PATIENT:BRADEN FITCH MEDICAL RECORD: [id number] : 43 LOCATION:[facility] ADMISSION DATE: 03/02/19 Generatedon:03/02/201914:30 Patient name: BRADEN FITCH Patient #: [id number] : 1945 Date of study: 03/02/2019 Page: Of Hemodynamic Procedure Report Patient Data Patient Demographics First Name: BRADEN Gender: Female Last Name: LITTLE : 1945 [facility] Initial: J Age: 73 year(s) Patient #: [id number] Race: SSN: [id number] Additional ID: [id number] Contact details [address]: [address] [place], [place] [id number] State: [place] City: [place] Zip code: [address] Past Medical History Allergies Allergen Reaction Date Comments Reported Sulfa drugs 08/13/2014 Codeine 08/13/2014 Morphine 08/13/2014 Codeine 05/13/2017 Sulfa drugs 05/13/2017 Morphine 05/13/2017 Other allergy 06/30/2018 Sulfa, Morphine,codeine, hydrocodone. Other allergy 06/30/2018 MORPHINE, HYDROCODONE, SULFA Other allergy 03/02/2019 Peck, Mor, Sulfa Admission Admission Data Admission Date: 03/02/2019 Admission Time: 9:58 Arrival Date: 03/02/2019 Arrival Time: 0:00 Room #: D.CL03 Insurance Payor: Private health insurance Height (in.): 62 BSA: 1.84 (m2) Height (cm.): 157.48 BMI: 33.47 (kg/m2) Weight (lbs.): 183 Weight (kg.): 83.01 Lab Results Lab Result Date: 03/02/2019 Lab Result Time: 0:00 Biochemistry Name Units Result Min Max BUN mg/dl 20 --(----)*- 7 18 Creatinine mg/dl 0.6 --(*---)-- 0.6 1.3 eGFR ml/min 90 --(*---)-- 90 120 NONAFRICAN CBC Name Units Result Min Max Hemoglobin g/dl 13 -*(----)-- 13.5 17.5 Procedure Procedure Types Cath Procedure Diagnostic Procedure [facility] w/Coronaries Procedure Description Procedure Date Procedure Date: 03/02/2019 Procedure Start Time: 14:22 Procedure End Time: 14:28 Procedure Staff Name Function Yehuda Stevens MD Performing Physician Lizbeth Luna RT Monitor Say Machado RN Nurse Sarah Victor RT Scrub Procedure Data Cath Procedure Fluoroscopy Diagnostic fluoroscopy Total fluoroscopy Time: 1.2 time: 1.2 min min Contrast Material Contrast Material Type Amount (ml) Isovue 300 Entry Location Entry Primary Successful Side Size Upsize Upsize Entry Closure Dennis ccessful Closure Location (Fr) 1 (Fr) 2 (Fr) Remarks Device Remarks Radial Right 6 Fr Mechanical artery Short Compression Estimated blood loss: 10 ml Diagnostic catheters Device Type Used For End Catheter Placement DIAGNOSTIC Front Royal 110cm 5 Procedure Fr catheter ([id number]) Procedure Complications No complications Procedure Medications Medication Administration Route Dosage 0.9% NaCl I.V. 100 ml/hr Oxygen etCO2 Nasal cannula 2 l/min Heparin Flush Bag added to field 2 bags (1000units/500ml NS) Lidocaine 2% added to field 20 Radial Cocktail added to field 1 syringe (Verapamil 2mg/Nitro 400mcg/Heparin 1500units) Versed I.V. 2 mg Fentanyl I.V. 100 mcg Versed I.V. 1 mg Radial Cocktail I.A. 1 syringe (Verapamil 2mg/Nitro 400mcg/Heparin 1500units) Hemodynamics Rest BSA: 1.84 (m2) HGB: 13 (g/dl) O2 Consumption: Estimated: 154.67 (ml/min) O2 Cons umption indexed: Estimated:84.06 (ml/min/m) Heart Rate: 51 (bpm) Snapshots Pre Cath Intra NCS Post Cath Vital Signs Time Heart Resp SPO2 etCO2 NIBP (mmHg) Rhythm Pain Sedation Rate (ipm) (%) (mmHg) Status Level (bpm) 14:04:36 51 19 98 0 202/89(165) NSR 0 (11) 10(A) , No pain 14:08:56 50 10 100 40.3 191/89(164) NSR 0 (11) 10(A) , No pain 14:14:26 51 19 98 39.6 189/89(99) NSR 0 (11) 10(A) , No pain 14:18:50 50 11 98 0 176/86(154) NSR 0 (11) 10(A) , No pain 14:23:15 54 19 98 11.9 177/81(144) NSR 0 (11) 9(A) , No pain 14:27:41 59 12 95 39.5 146/78(122) NSR 0 (11) 9(A) , No pain Medications Time Medication Route Dose Verified Delivered Reason Notes Effectiveness by by 14:07:21 0.9% NaCl I.V. 100 Say Say Per ml/hr Jeannette Machado physician RN RN 14:07:31 Oxygen etCO2 2 l/min Say Say for low 02 Nasal Lorigan Lorigan sats cannula RN RN 14:07:40 Heparin Flush added 2 bags Say Say used for Bag to Lorkimberly Machado procedure (1000units/500ml RN RN NS) 14:07:51 Lidocaine 2% added 20ml Say Say for local to vial Lorigan Lorigan anesthetic field ORTEGA RN 14:08:03 Radial Cocktail added 1 Say Say used for (Verapamil to syringe Lorigan Lorigan procedure 2mg/Nitro field ORTEGA RN 400mcg/Heparin 1500units) 14:12:21 Versed I.V. 2 mg Say Say for sedation Jeannette Machado RN RN 14:12:29 Fentanyl I.V. 100 mcg Say Say for sedation Jeannette Machado RN RN 14:21:39 Versed I.V. 1 mg Say Say for sedation Jeannette Machado RN RN 14:23:13 Radial Cocktail I.A. 1 Say Say for (Verapamil syringe Lorigan Lorigan vasodilation 2mg/Nitro SHANNON RN 400mcg/Heparin 1500units) Procedure Log Time Note 13:55:45 Arrival Date: 03/02/2019 12:00:00 AM 13:55:46 Insurance Payor : Private health insurance 13:56:01 Patient Height : 62 inches 13:56:08 Patient Weight : 183 lbs 14:00:06 Lab Result : BUN 20 mg/dl 14:00:06 Lab Result : Hemoglobin 13 g/dl 14:00:06 Lab Result : eGFR NONAFRICAN 90 ml/min 14:00:06 Lab Result : Creatinine 0.6 mg/dl 14:00:36 Contrast Material : Isovue 300 ml 14:00:47 Diagnostic Cath Status : Elective 14:01:50 Procedure Status Elective Heart Cath (OP). 14:01:53 Say Machado RN sent for patient. Start room use. 14:01:54 Time tracking: Regular hours (M-F 7:00 - 5:00) 14:01:59 Plan of Care:Hemodynamics will remain stable., Cardiac rhythm will remain stable., Comfort level will be maintained., Respiratory function will remain adequate., Patient/ family verbilizes understanding of procedure., Procedure tolerated without complication., Recovers from procedure without complications.. 14:02:20 Patient received from Pre/Post Procedure Room to CCL 2 Alert and oriented. Tansferred to table in Supine position. 14:02:28 Warm blankets applied, and mariluz hugger turned on for patient comfort. 14:02:29 Correct patient and procedure confirmed by team. 14:02:29 ECG and BP/O2 sat monitors applied to patient. 14:02:31 Vital chart was started 14:02:34 Baseline sample Acquired. 14:02:42 Baseline sample Acquired. 14:02:46 Rhythm: sinus rhythm 14:02:48 Full Disclosure recording started 14:03:01 H&P Date Dictated: 02/28/2019 Within 30 days and on chart., H&P Addendum completed by physician on day of procedure. (MUST COMPLETE FOR ALL OUTPATIENTS). 14:03:03 Pre-procedure instructions explained to patient. 14:03:07 Family in waiting room. 14:03:09 Patient NPO since Midnight. 14:03:32 Patient allergic to Other allergyHydro, Mor, Sulfa 14:03:35 Is the patient allergic to Iodine/contrast media? No. 14:03:38 Was the patient premedicated? Yes 14:03:40 Is patient on blood thinner?No 14:03:43 Patient diabetic? No. 14:03:47 Snore? Yes 14:03:49 Sleep apnea? No 14:03:57 Dentures? Yes ? 14:04:23 IV patent on arrival in left forearm with 0.9% NaCl at [facility]. 14:04:26 Lab results completed and on chart. 14:04:30 Right Radial & Right Groin area was prepped with chlora-prep and draped in sterile fashion 14:04:31 Alarms reviewed by R. N. 14:04:32 Sharps counted by scrub and verified by R.N. 14:04:38 Use device set Radial Dx or PCI 14:04:39 ACIST Syringe (82788) opened to sterile field. 14:04:40 Medline Cath Pack ([id number]) opened to sterile field. 14:04:40 Bag Decanter (2002S) opened to sterile field. 14:04:41 ACIST Hand Control (21522) opened to sterile field. 14:04:42 ACIST Manifold (82185) opened to sterile field. 14:04:42 Tegaderm 4 x 4 (1626W) opened to sterile field. 14:04:44 MBrace Wrist Support ([id number]) opened to sterile field. 14:04:46 EMERALD Guide Wire (666-425) opened to sterile field. 14:04:47 SHEATH 6FR RAIN (5179297) opened to sterile field. 14:07:21 0.9% NaCl 100 ml/hr I.V. was administered by Say Machado RN; Per physician; Verbal order read back and verified. 14:07:31 Oxygen 2 l/min etCO2 Nasal cannula was administered by Say Machado RN; for low 02 sats; Verbal order read back and verified. 14:07:40 Heparin Flush Bag (1000units/500ml NS) 2 bags added to field was administered by Say Machado RN; used for procedure; Verbal order read back and verified. 14:07:51 Lidocaine 2% 20ml vial added to field was administered by Say Machado RN; for local anesthetic; Verbal order read back and verified. 14:08:03 Radial Cocktail (Verapamil 2mg/Nitro 400mcg/Heparin 1500units) 1 syringe added to field was administered by Say Machado RN; used for procedure; Verbal order read back and verified. 14:11:13 Physician paged 14:11:14 Physician arrived 14:11:17 Right Radial & Right Groin site verified by team. 14:11:21 Fire Safety Assessment: A--An alcohol-based skin anteseptic being used preoperatively., C--Open oxygen or nitrous oxide is being used., D--An ESU, laser, or fiber-optic light is being used. 14:11:35 Physical assessment completed. ASA score P 3 - A patient with severe systemic disease as per Yehuda Stevens MD. 14:11:39 1) 90+ Normal kidney functon but urine findings or structural abnormalities or genetic trait point to kidney disease. 14:11:55 Maximum allowable contrast dose (3.7 X eGFR X 0.75)250 ml. 14:12:00 Sedation plan: IV Moderate Sedation Medication:Versed, Fentanyl 14:12:03 --------ALL STOP TIME OUT------ 14:12:04 Final Timeout: patient, procedure, and site verified with staff and physician. All members of the team are in agreement. 14:12:21 Versed 2 mg I.V. was administered by Say Machado RN; for sedation; Verbal order read back and verified. 14:12:29 Fentanyl 100 mcg I.V. was administered by Say Machado RN; for sedation; Verbal order read back and verified. 14:18:06 Zero performed for pressure channel P1 14:18:31 Zero performed for pressure channel P1 14:21:18 Procedure started. 14:21:39 Versed 1 mg I.V. was administered by Say Machado RN; for sedation; Verbal order read back and verified. 14:22:11 Local anesthetic to right radial artery with Lidocaine 2% by Yehuda Stevens MD.INITIAL ACCESS ONLY 14:22:20 A 6 Fr Short sheath was inserted into the Right Radial artery 14:22:29 A DIAGNOSTIC Front Royal 110cm 5 Fr catheter ([id number]) was advanced over the wire and used for Procedure. 14:22:33 LV angiography performed. 14:23:13 Radial Cocktail (Verapamil 2mg/Nitro 400mcg/Heparin 1500units) 1 syringe I.A. was administered by Say Machado RN; for vasodilation; Verbal order read back and verified. 14:24:06 EF : 60 % 14:24:09 LCA angiography performed. 14:25:30 RCA angiography performed. 14:26:51 Sheath removed intact; hemostasis achieved with Mechanical Compression to the Right Radial artery. 14:26:53 Procedure ended.(Physican Out) 14:27:05 Fluoroscopy time 01.20 minutes. 14:27:28 ZEPHYR LARGE TR BAND (974718) opened to sterile field. 14:27:34 [place] band inflated with 12cc of air. 14:27:36 Insertion/operative site no bleeding no hematoma. 14:27:37 Post Procedure Pulses reassessed and unchanged 14:27:42 Post-procedure physical assessment completed. ASA score P 3 - A patient with severe systemic disease as per Yehuda Stevens MD. 14:27:46 Post procedure rhythm: unchanged. 14:27:49 Estimated blood loss: 10 ml 14:27:51 Post procedure instruction explained to patient.Patient verbalizes understanding. 14:28:03 Procedure and supply charges have been captured, reviewed, submitted and are correct. 14:28:23 Procedure Complication : No complications 14:28:26 Vital chart was stopped 14:28:27 See physician's report for complete and final results. 14:28:30 Report given to Pre/Post Procedure Room. 14:28:33 Patient transfered to Pre/Post Procedure Room with Stretcher. 14:28:37 Procedure ended. 14:28:37 Full Disclosure recording stopped 14:29:06 End room use (Document Last) 14:29:35 End room use (Document Last) Device Usage Item Name Manufacture Quantity Catalog Hospital Part Current Minima l Lot# / Number Charge Number Stock Stock Serial# Code ACIST Acist 1 04166 [id number] [id number] [id number] 20 Syringe Medical (30394) Systems Inc Medline Medline 1 [id number] 845618 33634 470474 5 Cath Pack ([id number]) Bag Microtek 1 768052 56253 538191 5 Decanter Medical Inc. () ACIST Hand Acist 1 74984 564499 846287 484457 5 Control Medical (16712) Systems Inc ACIST Acist 1 63521 194334 715179 544447 5 Manifold Medical (10387) Systems Inc Tegaderm 4 3M 1 1626W 344488 609761 989126 5 x 4 (1626W) MBrace Advanced 1 140-0250-00 179752 10720 692634 5 Wrist Vascular Support Dynamics ([id number]) EMERALD Cardinal 1 109-973 555548 062596 833547 5 Guide Wire [facility] (090-455) SHEATH 6FR Cardinal 1 [id number] 788922 8547283 069915 5 [facility] (5320507) DIAGNOSTIC Terumo 1 40-8463 490648 537263 942088 5 Front Royal 110cm 5 Fr catheter (367546) ZEPHYR Cardinal 1 903182 096809 6936325 912438 5 LARGE TR Health BAND (715810) Signature Audit [place] Stage Time Signature Unsigned Intra-Procedure 03/02/2019 Lizbeth Luna 2:29:06 PM RT(R) Intra-Procedure 03/02/2019 Say 2:29:35 PM Jeannette ORTEGA Intra-Procedure 03/02/2019 Yehuda Stevens 2:30:15 PM [place] [id number] [place] [id number]
[~2019-03-02 09:58] MED LIST changes: +FLUTICASONE PRO16 GM NASAL; +HYDROCHLOROTHIAZIDE PO; +OLMESARTAN PO; -VITAMIN D31000 UNIT; +VITAMIN D31000 UNIT PO
[2019-03-02] MEDS ORDERED: XANAX0.5 MG PO (10:24)
[2019-03-02] MEDS ORDERED: FLUTICASONE PRO16 GM NASAL (10:25)
[2019-03-02] MEDS ORDERED: TOPROL XL50 MG PO (10:27)
[2019-03-02] MEDS ORDERED: MUPIROCIN22 GM TOPICAL (10:27)
[2019-03-02] MEDS ORDERED: MULTI-DAY VITAM1 TAB PO (10:27)
[2019-03-02] MEDS ORDERED: CRESTOR20 MG PO (10:29)
[2019-03-02] MEDS ORDERED: ZOLOFT50 MG PO (10:29)
[2019-03-02 10:36] VITALS: BP 152/64; Ht 157.5 cm; Wt 82.3 kg
[2019-03-02 10:49] LABS: BASOPHILS 0.3 % (0-2); EOSINOPHILS 0.8 % (0-7); HEMATOCRIT 39.2 % (36.0-48.0); IMMATURE GRANULOCYTES 0.3 % (0-5); LYMPHOCYTES 33.5 % (15-50); MCH 29.4 pg (26.0-34.0); MCHC 33.2 g/dL (31.0-37.0); MCV 88.7 fL (80.0-100.0); MONOCYTES 11.3 % (2-11); NEUTROPHILS 53.8 % (40-80); PLATELET COUNT 185 10x3/uL (130-400); RBC 4.42 10x6/uL (4.00-5.40); RDW 13.2 % (11.5-14.5)
[2019-03-02 11:02] LABS: ALT (SGPT) 35 U/L (10-68); CALC OSMOLALITY 285 mosm/kg (275-300); CALCIUM 8.8 mg/dL (8.5-10.1); CARBON DIOXIDE 31.6 mmol/L (21.0-32.0); CHLORIDE - SERUM 103 mmol/L (98-107); CHOL - HDL RATIO 2.7 ratio (2.3-4.1); CHOLESTEROL, TOTAL 106 mg/dL (0-200); CREATININE - SERUM 0.6 mg/dL (0.6-1.3); GLUCOSE 101 mg/dL (74-106); HDL CHOLESTEROL 39 mg/dL (32-96); LDL CHOLESTEROL 56 mg/dL (0-100); LDL-HDL RATIO 1.4 ratio (1.5-3.5); POTASSIUM - SERUM 3.4 mmol/L (3.5-5.1); SODIUM 142 mmol/L (136-145); TRIGLYCERIDE 56 mg/dL (30-200); UREA NITROGEN 20 mg/dL (7-18); eGFR NON AFRICAN AMERICAN > 90 mL/min (90-120)
--- NOTE | 2019-03-02 14:40 | NUR ---
PT ARRIVED BY STRETCHER. PLACED ON MONITOR. ASSESSMENT COMPLETED. VSS. CALL LIGHT WITHIN REACH. FAMILY AT BEDSIDE.
--- NOTE | 2019-03-02 14:55 | NUR ---
RIGHT WRIST Z BAND IN PLACE. NO BLEEDING/HEMATOMA NOTED. VSS. CALL LIGHT WITHIN REACH.
--- NOTE | 2019-03-02 15:25 | NUR ---
RIGHT WRIST Z BAND IN PLACE. NO BLEEDING/HEMATOMA NOTED. 1cc OF AIR REMOVED FROM BAND. TOLERATED WELL. SET UP WITH SANDWICH TRAY AND DRINK. DENIES NAUSEA/PAIN.
--- NOTE | 2019-03-02 15:45 | NUR ---
4cc OF AIR REMOVED FROM Z BAND. NO BLEEDING/HEMATOMA NOTED. CALL LIGHT WITHIN REACH. VSS. WILL CONTINUE TO MONITOR.
--- NOTE | 2019-03-02 16:00 | NUR ---
4cc OF AIR REMOVED FROM Z BAND. NO BLEEDING/HEMATOMA NOTED. PIV D/C'C WITH CATH TIP INTACT. TOLERATED WELL. PT INSTRUCTED TO GET UP AND DRESSED. AMBULATED TO RESTROOM. VOIDED WITHOUT DIFFICULTY.
--- NOTE | 2019-03-02 16:20 | NUR ---
DISCUSSED DISCHARGE INSTRUCTIONS WITH PT. SHE VOICED UNDERSTANDING. Z BAND REMOVED AND DRESSING APPLIED. NO BLEEDING/HEMATOMA NOTED. PT WAITING ON RIDE FROM SISTER.
--- NOTE | 2019-03-02 16:50 | NUR ---
PT TAKEN OUT TO VEHICLE BY WHEELCHAIR. NO S/S OF DISTRESS NOTED. ALL BELONGINGS AND PAPERWORK IN HAND.
--- NOTE | 2019-03-05 14:34 | OP ---
PATIENT NAME: BRADEN FITCH MEDICAL RECORD: [id number] :43 LOCATION:[facility] ADMISSION DATE: SURGEON: VERN COLEMAN MD DATE OF OPERATION: 03/02/2019 PROCEDURES: 1. Left heart catheterization. 2. Selective coronary angiography. 3. Left ventriculogram. INDICATIONS: Angina and coronary artery disease. PROCEDURE IN DETAIL: After informed consent was obtained and after a detailed description of risks, benefits as well as alternative therapies, the patient elected to proceed with angiogram and heart catheterization. The right radial area was prepped and draped in normal sterile fashion. Right radial artery was cannulated via modified Seldinger technique with placement of 5-Icelandic sheath. All catheters exchanged through the sheath. FINDINGS: Left ventriculogram was performed in standard 30-degree JEFFRIES view, reveals good cardiac wall motion, ejection fraction is 60%. SELECTIVE CORONARY ANGIOGRAPHY: 1. Left main showed no significant angiographic disease. 2. Left anterior descending has previously placed stents with no significant restenosis. No disease elsewise throughout the LAD or its branches. 3. Left circumflex has previously placed stents with no significant restenosis. No disease elsewise throughout circumflex or its branches. 4. The right coronary has previously placed stents with no significant restenosis. No disease elsewise throughout the RCA or its branches. OVERALL IMPRESSION: Wide patency of all the previously placed stents, no disease elsewise. Continue medical management of the coronary artery disease and cardiac risk factors. TRANSINT:[id number] Voice Confirmation ID: [id number] DOCUMENT ID: [id number] VERN COLEMAN MD at 1434 CC: [id number] DICTATION DATE: 03/02/19 1431 BALLOON SELLER: 03/02/19 2339 DEP CLI 03/02/19 [place] [id number] [place] [id number]
== END 2019-03-02 16:50 | disposition home or self-care (01) ==
LOC: D.CATH 09:58 → D.CLR 10:15 → D.CATH 12:00
PROVIDERS: ATTEND Internal Medicine Interventional Cardiology
DX: I25.110 Atherosclerotic heart disease of native coronary artery with unstable angina pectoris (principal)

== ENCOUNTER → 2019-08-15 07:53 | Outpatient (CLI) | payer MEDICARE ==
[2019-03-02 10:36] VITALS: BMI 33.2
--- NOTE | ~2019-08-15 | EC ---
PATIENT:BRADEN FITCH DATE OF SERVICE: 08/15/19 SEX: F MEDICAL RECORD: [id number] DATE OF : 43 LOCATION:[facility] AGE OF PATIENT: 74 ADMISSION DATE: 08/15/19 REFERRING PHYSICIAN: INTERPRETING PHYSICIAN: VERN STEVENS MD ECHOCARDIOGRAM REPORT ECHO CHARGES 4 ECHO COMPLETE Date: 08/15/19 CLINICAL DIAGNOSIS: CAD/DYSPNEA ON EXERTION HX OF HTN ECHOCARDIOGRAPHIC MEASUREMENTS (adult normal given) AC root (d.<3.7cm) 3.1 cm LV Septum d (<1.2 cm> 1.1 cm Valve Excursion 0.9 cm LV Septum (systole) 1.3 cm Left Atria (s.<4.0cm> 4.1 cm LVPW d(<1.2cm) 1.5 cm RV (d.<2.3cm) 3.5 cm LVPW (sytole) 1.7 cm LV diastole(<5.6CM) 4.4 cm MV E-F(>70mm/sec) cm LV systole 3.0 cm LVOT Diameter 2.0 cm MV exc.(>10mm) 1.8 cm Est.ejection fraction (50-75%) % DOPPLER: LVIT cm/sec A 58.0 cm/sec E 104.0 cm/sec LA cm/sec RVSP 31 mmHg LVOT 101 cm/sec AOP1/2T m/s Asc. 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 Stevens TAPE# PACS Pericardial Effusion N DATE OF SERVICE: FINDINGS: 1. Left ventricular chamber size is within normal limits. Left ventricular systolic function is normal at 60%. 2. Left atrium is enlarged at 4.1 cm. Right atrium and right ventricle chamber sizes are within normal limits. 3. Valvular structures have normal structure and motion. 4. Doppler interrogation reveals mild mitral regurgitation, mild tricuspid ECHOCARDIOGRAM REPORT [id number] BRADEN FITCH regurgitation, no other valvular insufficiency or stenosis. Pulmonary systolic pressure estimated at 31 mmHg. 5. No evidence of pericardial effusion or left ventricular thrombus. TRANSINT:[id number] Voice Confirmation ID: [id number] DOCUMENT ID: [id number] VERN STEVENS MD CC: [id number] DICTATION DATE: 08/15/19 1225 STEWARD/STEWARDESS SECOND CLASS: 08/15/19 1525 [facility] [address] [place] [id number]
[~2019-08-15 07:53] MED LIST changes: +CRESTOR20 MG PO; +MULTI-DAY VITAM1 TAB PO; +MUPIROCIN22 GM TOPICAL; +ZOLOFT50 MG PO
== END | disposition home or self-care (01) ==
LOC: D.HCCECHO 07:53
PROVIDERS: ATTEND Internal Medicine Interventional Cardiology
DX: I25.119 Atherosclerotic heart disease of native coronary artery with unspecified angina pectoris (principal)

== ENCOUNTER 2019-08-22 07:57 | Outpatient (CLI) | payer MEDICARE ==
[~2019-08-22] VITALS: Ht 157.5 cm; Wt 78.4 kg
--- NOTE | ~2019-08-22 | HEMODYNAMI ---
PATIENT:BRADEN FITCH MEDICAL RECORD: [id number] : 43 LOCATION:[facility] ADMISSION DATE: 08/22/19 Generatedon:08/22/201911:03 Patient name: BRADEN FITCH Patient #: [id number] : 1945 Date of study: 08/22/2019 Page: Of Hemodynamic Procedure Report Patient Data Patient Demographics Procedure consent was obtained First Name: BRADEN Gender: Female Last Name: LITTLE : 1945 Middle Initial: AMANDA Age: 74 year(s) Patient #: [id number] Race: SSN: [id number] Additional ID: [id number] Contact details Address: [address] [place], [place] [id number] State: [place] City: [place] Zip code: [address] Past Medical History Allergies Allergen Reaction Date Comments Reported Sulfa drugs 08/13/2014 Codeine 08/13/2014 Morphine 08/13/2014 Codeine 05/13/2017 Sulfa drugs 05/13/2017 Morphine 05/13/2017 Other allergy 06/30/2018 Sulfa, Morphine,codeine, hydrocodone. Other allergy 06/30/2018 MORPHINE, HYDROCODONE, SULFA Other allergy 03/02/2019 [place], [place], Sulfa Other allergy 08/22/2019 HYDROCODONE, MORPHINE, SULFA Admission Admission Data Admission Date: 08/22/2019 Admission Time: 7:57 Lab Results Lab Result Date: 08/22/2019 Lab Result Time: 0:00 Biochemistry Name Units Result Min Max BUN mg/dl 11 --(-*--)-- 7 18 Creatinine mg/dl 0.6 --(*---)-- 0.6 1.3 eGFR ml/min 90 --(*---)-- 90 120 NONAFRICAN CBC Name Units Result Min Max Hematocrit % 41.4 -*(----)-- 42 54 Hemoglobin g/dl 13.5 --(*---)-- 13.5 17.5 Procedure Procedure Types Cath Procedure Diagnostic Procedure [facility] w/Coronaries Procedure Description Procedure Date Procedure Date: 08/22/2019 Procedure Start Time: 10:40 Procedure End Time: 11:01 Procedure Staff Name Function Yehuda Stevens MD Performing Physician Say Machado RN Nurse Albin Merrill RT Scrub Neris Mclean RN Monitor Procedure Data Cath Procedure Fluoroscopy Diagnostic fluoroscopy Total fluoroscopy Time: 0.9 time: 0.9 min min Diagnostic fluoroscopy Total fluoroscopy dose: 327 dose: 327 mGy mGy Contrast Material Contrast Material Type Amount (ml) Isovue 300 45 Entry Location Entry Primary Successful Side Size Upsize Upsize Entry Closure Succes sful Closure Location (Fr) 1 (Fr) 2 (Fr) Remarks Device Remarks Femoral Right 5 Fr Exoseal artery Estimated blood loss: 5 ml Diagnostic catheters Device Type Used For End Catheter Placement MULTIPACK Pigtail 5 Fr Procedure catheter MULTIPACK JL 4.0 5Fr Procedure catheter MULTIPACK 3DRC 5Fr Procedure catheter Procedure Complications No complications Procedure Medications Medication Administration Route Dosage 0.9% NaCl I.V. 100 ml/hr Oxygen etCO2 Nasal cannula 2 l/min Heparin Flush Bag added to field 2 bags (1000units/500ml NS) Lidocaine 2% added to field 20 Radial Cocktail added to field 1 syringe (Verapamil 2mg/Nitro 400mcg/Heparin 1500units) Versed I.V. 2 mg Fentanyl I.V. 100 mcg Versed I.V. 2 mg Versed I.V. 2 mg Hemodynamics Rest HGB: 13.5 (g/dl) Heart Rate: 51 (bpm) Snapshots Pre Cath Intra NCS Post Cath Vital Signs Time Heart Resp SPO2 etCO2 NIBP (mmHg) Rhythm Pain Sedation Rate (ipm) (%) (mmHg) Status Level (bpm) 10:20:03 51 14 98 0 169/71(138) NSR 0 (11) 10(A) , No pain 10:24:23 51 19 100 30.1 150/71(111) NSR 0 (11) 10(A) , No pain 10:28:33 54 17 100 9 165/81(96) NSR 0 (11) 10(A) , No pain 10:32:50 53 17 98 0 155/81(128) NSR 0 (11) 10(A) , No pain 10:36:56 54 18 98 0 150/80(124) NSR 0 (11) 10(A) , No pain 10:41:08 54 18 98 31.6 150/78(122) NSR 0 (11) 10(A) , No pain 10:45:18 57 19 99 0 162/88(103) NSR 0 (11) 10(A) , No pain 10:49:34 55 11 100 45.1 158/80(134) NSR 0 (11) 10(A) , No pain 10:53:52 51 12 97 0 141/75(87) NSR 0 (11) 9(A) , No pain 10:58:00 58 15 98 0 134/80(116) NSR 0 (11) 9(A) , No pain Medications Time Medication Route Dose Verified Delivered Reason Notes E ffectiveness by by 10:21:59 0.9% NaCl I.V. 100 Say Say Per ml/hr Jeannette Machado physician RN RN 10:22:08 Oxygen etCO2 2 l/min Say Say for low 02 Nasal Lorigan Lorigan sats cannula RN RN 10:22:22 Heparin Flush added 2 bags Say Say used for Bag to Lorigan Lorigan procedure (1000units/500ml field RN RN NS) 10:22:34 Lidocaine 2% added 20ml Say Say for local to vial Lorigan Lorigan anesthetic field RN RN 10:22:49 Radial Cocktail added 1 Say Say used for (Verapamil to syringe Lorigan Lorigan procedure 2mg/Nitro field RN RN 400mcg/Heparin 1500units) 10:49:10 Versed I.V. 2 mg Say Say for Lorigan Lorigan sedation RN RN 10:49:20 Fentanyl I.V. 100 mcg Say Say for Lorigan Lorigan sedation RN RN 10:50:12 Versed I.V. 2 mg Say Say for Lorigan Lorigan sedation RN RN 10:52:01 Versed I.V. 2 mg Say Say for Lorigan Lorigan sedation RN mussel opener Log Time Note 10:05:56 Informed consent obtained and on chart 10:06:51 Procedure Status Elective Heart Cath (OP). 10:06:53 Say Machado RN sent for patient. Start room use. 10:06:54 Time tracking: Regular hours (M-F 7:00 - 5:00) 10:06:57 Plan of Care:Hemodynamics will remain stable., Cardiac rhythm will remain stable., Comfort level will be maintained., Respiratory function will remain adequate., Patient/ family verbilizes understanding of procedure., Procedure tolerated without complication., Recovers from procedure without complications.. 10:12:50 Patient received from Pre/Post Procedure Room to CCL 2 Alert and oriented. Tansferred to table in Supine position. 10:12:55 Warm blankets applied, and mariluz hugger turned on for patient comfort. 10:12:56 Correct patient and procedure confirmed by team. 10:12:57 ECG and BP/O2 sat monitors applied to patient. 10:13:00 Full Disclosure recording started 10:13:04 H&P Date Dictated: 08/22/2019 Within 30 days and on chart.. 10:13:06 Pre-procedure instructions explained to patient. 10:13:06 Pre-op teaching completed and patient verbalized understanding. 10:13:12 Family unavailable. 10:13:14 Patient NPO since Midnight. 10:18:50 Vital chart was started 10:18:51 Baseline sample Acquired. 10:18:54 Rhythm: sinus bradycardia 10:19:30 Patient allergic to Other allergyHYDROCODONE, MORPHINE, SULFA 10:19:32 Is patient on blood thinner?No 10:19:33 Patient diabetic? No. 10:19:36 Previous problem with sedation/anesthesia? No ? 10:19:38 Snore? Yes 10:19:39 Sleep apnea? No 10:19:40 Deviated septum? No 10:19:41 Opens mouth fully? Yes 10:19:41 Sticks out tongue? Yes 10:19:43 Airway obstruction? No ? 10:19:47 Dentures? Yes IN TIGHT 10:21:59 0.9% NaCl 100 ml/hr I.V. was administered by Say Machado RN; Per physician; Verbal order read back and verified. 10:22:08 Oxygen 2 l/min etCO2 Nasal cannula was administered by Say Machado RN; for low 02 sats; Verbal order read back and verified. 10:22:22 Heparin Flush Bag (1000units/500ml NS) 2 bags added to field was administered by Say Machado RN; used for procedure; Verbal order read back and verified. 10:22:34 Lidocaine 2% 20ml vial added to field was administered by Say Machado RN; for local anesthetic; Verbal order read back and verified. 10:22:48 Pre procedure: right dorsailis pedis pulse 2+ Normal; easily identifiable; not easily obliterated 10:22:49 Radial Cocktail (Verapamil 2mg/Nitro 400mcg/Heparin 1500units) 1 syringe added to field was administered by Say Machado RN; used for procedure; Verbal order read back and verified. 10:22:51 Patient pain scale 0/10 ?. 10:22:53 Modified Robert's test Ulnar < 7 seconds 10:23:02 IV patent on arrival in left forearm with 0.9% NaCl at [facility]. 10:24:26 Lab Result : BUN 11 mg/dl 10:: Lab Result : Creatinine 0.6 mg/dl 10:: Lab Result : eGFR NONAFRICAN 90 ml/min 10::26 Lab Result : Hemoglobin 13.5 g/dl 10::26 Lab Result : Hematocrit 41.4 % 10:24:29 Lab results completed and on chart. 10:24:48 Stress Test: yes; abnormal ANTERIOR 10:24:53 Right Radial & Right Groin area was prepped with chlora-prep and draped in sterile fashion 10:24:54 Alarms reviewed by R. N. 10:24:54 Sharps counted by scrub and verified by R.N. 10:25:39 Use device set Radial Dx or PCI 10:25:40 ACIST Syringe (91410) opened to sterile field. 10:25:41 Bag Decanter () opened to sterile field. 10:25:41 ACIST Hand Control (88598) opened to sterile field. 10:25:42 ACIST Manifold (04598) opened to sterile field. 10:25:42 Tegaderm 4 x 4 (1626W) opened to sterile field. 10:25:44 Medline Cath Pack ([id number]) opened to sterile field. 10:25:44 MBrace Wrist Support ([id number]) opened to sterile field. 10:25:48 EMERALD Guide Wire (672-727) opened to sterile field. 10:25:49 SHEATH 6FR RAIN (9487058) opened to sterile field. 10:40:33 --------ALL STOP TIME OUT------ 10:40:34 Final Timeout: patient, procedure, and site verified with staff and physician. All members of the team are in agreement. 10:40:41 Right Radial & Right Groin site verified by team. 10:40:41 Local anesthetic to right radial artery with Lidocaine 2% by Yehuda Stevens MD.INITIAL ACCESS ONLY 10:41:01 Fire Safety Assessment: A--An alcohol-based skin anteseptic being used preoperatively., C--Open oxygen or nitrous oxide is being used., D--An ESU, laser, or fiber-optic light is being used. 10:45:24 Procedure started. 10:49:10 Versed 2 mg I.V. was administered by Say Machado RN; for sedation; Verbal order read back and verified. 10:49:20 Fentanyl 100 mcg I.V. was administered by Say Machado RN; for sedation; Verbal order read back and verified. 10:49:31 ATTEMPTED RADIAL ACCESS W/OUT SUCCESS 10:49:44 Local anesthetic to right femoral artery with Lidocaine 2% by Yehuda Stevens MD.ADDITIONAL ACCESS 10:49:53 A 5 Fr sheath was inserted into the Right Femoral artery 10:50:05 SHEATH 5FR Shafter (JAU654) opened to sterile field. 10:50:12 Versed 2 mg I.V. was administered by Say Machado RN; for sedation; Verbal order read back and verified. 10:50:23 Use device set Femoral Dx 10:50:32 DIAGNOSTIC Multipack 5Fr catheter set ([id number]) opened to sterile field. 10:50:38 A MULTIPACK Pigtail 5 Fr catheter was advanced over the wire and used for Procedure. 10:50:57 LV gram done using JEFFRIES 10:51:01 Injector settings: Ml/sec: 5, Volume: 15, 10:51:12 EF : 60 % 10:51:19 Catheter removed. 10:51:28 A MULTIPACK JL 4.0 5Fr catheter was advanced over the wire and used for Procedure. 10:52:01 Versed 2 mg I.V. was administered by Say Machado RN; for sedation; Verbal order read back and verified. 10:52:03 LCA angiography performed. 10:54:08 Catheter removed. 10:54:14 A MULTIPACK 3DRC 5Fr catheter was advanced over the wire and used for Procedure. 10:54:51 RCA angiography performed. 10:54:54 ACCDominant side:Right 10:54:59 Catheter removed. 10:55:03 EXOSEAL 5Fr (EX500) opened to sterile field. 10:55:22 Sheath removed intact; hemostasis achieved with Exoseal to the Right Femoral artery. 10:55:27 Procedure ended.(Physican Out) 10:55:39 Fluoroscopy time 00.90 minutes. 10:55:42 Fluoroscopy dose: 327 mGy 10:55:42 Flurop Dose total: 327 10:55:45 Dose Area Product 69055 mGy/cm. 10:55:56 Contrast amount:Isovue 300 45ml. 10:55:59 Maximum allowable dose exceeded? No. 10:56:00 Sharps counted by scrub and verified by R.N. 10:56:04 Insertion/operative site no bleeding no hematoma. 10:56:22 Post right femoral artery:stable, soft, clean and dry 10:59:56 Post Procedure Pulses reassessed and unchanged 10:59:59 Post procedure: right dorsailis pedis pulse 2+ Normal; easily identifiable; not easily obliterated. 11:00:03 Post-procedure physical assessment completed. ASA score P 2 - A patient with mild systemic disease as per Yehuda Stevens MD. 11:00:05 Post procedure rhythm: unchanged. 11:00:08 Estimated blood loss: 5 ml 11:00:09 Post procedure instruction explained to patient.Patient verbalizes understanding. 11:00:09 Patient needs reinforcement of post procedure teaching. 11:01:05 Procedure and supply charges have been captured, reviewed, submitted and are correct. 11:01:10 Procedure Complication : No complications 11:01:12 Vital chart was stopped 11:01:14 [facility] Findings: mild to moderate CAD (<70%) 11:01:16 Operative report dictated upon procedure completion. 11:01:17 See physician's report for complete and final results. 11:01:21 Report given to Pre/Post Procedure Room. 11:01:29 Patient transfered to Pre/Post Procedure Room with Stretcher. 11::31 Procedure ended. 11::31 Full Disclosure recording stopped 11:01:37 End room use (Document Last) 11:02:01 EMERALD Guide Wire (502455) opened to sterile field. 11:02:41 SHEATH 5FR Shafter (TBJ528) opened to sterile field. Device Usage Item Name Manufacture Quantity Catalog Hospital Part Current Minima l Lot# / Number Charge Number Stock Stock Serial# Code ACIST Acist 1 61703 [id number] [id number] [id number] 20 Syringe Medical (27738) Systems Inc Bag Microtek 1 2001S 793053 18845 824654 5 Decanter Medical Inc. () ACIST Hand Acist 1 82856 737007 295993 876199 5 Control Medical (01697) Systems Inc ACIST Acist 1 52002 977914 733387 224132 5 Manifold Medical (52567) Systems Inc Tegaderm 4 3M 1 1626W 084317 295420 675674 5 x 4 (1626W) Medline Medline 1 [id number] 070457 76475 666935 5 Cath Pack ([id number]) MBrace Advanced 1 140-0250-00 458011 54139 671983 5 Wrist Vascular Support Dynamics ([id number]) EMERALD Cardinal 2 502-455 189391 562788 893730 5 Guide Wire Health (502-455) SHEATH 6FR Cardinal 1 [id number] 429815 3030990 10[address]25 5 [facility] (7579730) SHEATH 5FR Terumo 2 NWA301 077754 955014 035159 5 Shafter (TIB763) DIAGNOSTIC Cardinal 1 MY9760 490726 91949 149159 30 Multipack Health 5Fr catheter set ([id number]) MULTIPACK Cardinal 1 461383 5 Pigtail 5 Health Fr catheter MULTIPACK Cardinal 1 317612 5 JL 4.0 5Fr Health catheter MULTIPACK Cardinal 1 529800 5 3DRC 5Fr Health catheter EXOSEAL 5Fr Cardinal 1 EX500 605159 271943 755450 10 (EX500) Health Signature Audit [place] Stage Time Signature Unsigned Intra-Procedure 08/22/2019 Neris Mclean 11:02:01 AM RN Intra-Procedure 08/22/2019 Say 11:02:41 AM Jeannette ORTEGA Intra-Procedure 08/22/2019 Yehuda Stevens 11:03:13 AM Signatures Performing Physician : Signature : Yehuda Stevens MD Date : Time : Nurse : Say Lorigan Signature : RN Date : Time : Monitor : Neris Vinay Signature : RN Date : Time : [address] [place] [address]
[2019-08-22] MEDS ORDERED: OMEGA-3100 MG (09:00)
[2019-08-22] MEDS ORDERED: PROBIOTIC1 EAC1 (09:01)
[2019-08-22 09:05] VITALS: BP 127/65; Ht 157.5 cm; Wt 78.4 kg
[2019-08-22 09:35] LABS: BASOPHILS 0.2 % (0-2); EOSINOPHILS 1.4 % (0-7); HEMATOCRIT 41.4 % (36.0-48.0); HEMOGLOBIN 13.5 g/dL (12-16); IMMATURE GRANULOCYTES 0.2 % (0-5); LYMPHOCYTES 31.9 % (15-50); MCH 29.2 pg (26.0-34.0); MCHC 32.6 g/dL (31.0-37.0); MCV 89.6 fL (80.0-100.0); MEAN PLATELET VOLUME 10.6 fL (7.4-10.4); MONOCYTES 9.3 % (2-11); PLATELET COUNT 204 10x3/uL (130-400); RBC 4.62 10x6/uL (4.00-5.40); RDW 13.1 % (11.5-14.5); WBC 4.3 10x3/uL (4.8-10.8)
[2019-08-22 09:50] LABS: ALT (SGPT) 26 U/L (10-68); CALC OSMOLALITY 280 mosm/kg (275-300); CALCIUM 9.5 mg/dL (8.5-10.1); CHLORIDE - SERUM 105 mmol/L (98-107); CHOL - HDL RATIO 2.9 ratio (2.3-4.1); CHOLESTEROL, TOTAL 119 mg/dL (0-200); CREATININE - SERUM 0.6 mg/dL (0.6-1.3); GLUCOSE 109 mg/dL (74-106); HDL CHOLESTEROL 41 mg/dL (32-96); LDL CHOLESTEROL 51 mg/dL (0-100); LDL-HDL RATIO 1.2 ratio (1.5-3.5); POTASSIUM - SERUM 3.9 mmol/L (3.5-5.1); SODIUM 141 mmol/L (136-145); TRIGLYCERIDE 137 mg/dL (30-200); UREA NITROGEN 11 mg/dL (7-18); eGFR NON AFRICAN AMERICAN > 90 mL/min (90-120)
--- NOTE | 2019-08-22 11:11 | NUR ---
PT ARRIVED BY STRETCHER. PLACED ON MONITORS. ASSESSMENT COMPLETED. VSS. CALL LIGHT WITHIN REACH. NO FAMILY AT BEDSIDE.
--- NOTE | 2019-08-22 11:26 | NUR ---
RIGHT GROIN DRESSING C/D/I. NO S/S OF HEMATOMA NOTED. CALL LIGHT WITHIN REACH. PT TOLERATING SIPS OF SODA AND CHIPS FROM HOME. DENIES NAUSEA/PAIN.
--- NOTE | 2019-08-22 11:56 | NUR ---
PT RESTING COMFORTABLY. VSS. RIGHT GROIN DRESSING C/D/I. NO S/S OF HEMATOMA NOTED. CALL LIGHT WITHIN REACH. NO NEEDS AT THIS TIME.
--- NOTE | 2019-08-22 12:10 | NUR ---
RIGHT GROIN DRESSING C/D/I. NO S/S OF HEMATOMA NOTED. HEAD OF BED INC TO 30 DEGREES. TOLERATED WELL. SET UP WITH SANDWICH TRAY AND DRINK. DENIES NAUSEA/PAIN AT THIS TIME.
--- NOTE | 2019-08-22 12:50 | NUR ---
PIV D/C'D WITH CATH TIP INTACT. TOLERATED WELL. RIGHT GROIN DRESSING C/D/I. PT UP AND DRESSED SELF. AMBULATED TO RESTROOM AND VOIDED WITHOUT DIFFICULTY.
--- NOTE | 2019-08-22 13:00 | NUR ---
DISCUSSED DISCHARGE INSTRUCTIONS WITH PT. SHE VOICED UNDERSTANDING. RIGHT GROIN DRESSING C/D/I. NO S/S OF HEMATOMA NOTED. PT TAKEN DOWN TO VEHICLE BY WHEELCHAIR. NO S/S OF DISTRESS NOTED. ALL BELONGINGS AND PAPERWORK IN HAND.
--- NOTE | 2019-08-24 11:26 | OP ---
PATIENT NAME: BRADEN FITCH MEDICAL RECORD: [id number] :43 LOCATION:D.CAT ADMISSION DATE: SURGEON: VERN COLEMAN MD DATE OF OPERATION: 08/22/2019 DATE OF SERVICE: 08/22/2019 PROCEDURES: 1. Left heart catheterization. 2. Selective coronary angiography. 3. Left ventriculogram. INDICATION: Angina and coronary artery disease. PROCEDURE PERFORMED: After informed consent was obtained and after a detailed description of risks, benefits as well as alternative therapies, the patient elected to proceed with angiogram and heart catheterization. The right femoral area was prepped and draped in normal sterile fashion. Right femoral artery was cannulated via modified Seldinger technique with placement of 5-Sammarinese sheath. All catheters exchanged through this sheath. FINDINGS: Left ventriculogram was performed in standard 30-degree JEFFRIES view, reveals good cardiac wall motion, ejection fraction estimated at 50%. SELECTIVE CORONARY ANGIOGRAPHY: 1. Left main is with no significant angiographic disease. 2. Left anterior descending has previously placed stents, these are widely patent with no significant restenosis. No disease elsewhere throughout the LAD or its branches. 3. Left circumflex has previously placed stents, these are widely patent with no significant restenosis. No disease elsewise throughout the circumflex or its branches. 4. The right coronary has previously placed stents, these are widely patent with no significant restenosis. No disease elsewise throughout the RCA or its branches. OVERALL IMPRESSION: Wide patency of the previously placed stents, no new disease elsewise. Continue medical management of the coronary artery disease and cardiac risk factors. TRANSINT:[id number] Voice Confirmation ID: [id number] DOCUMENT ID: [id number] VERN COLEMAN MD at 1126 CC: [id number] DICTATION DATE: 08/22/19 1059 ADULT LITERACY TEACHER: 08/22/19 1353 DEP CLI 08/22/19 [place] [address]
== END 2019-08-22 13:00 | disposition home or self-care (01) ==
LOC: D.CATH 07:57
PROVIDERS: ATTEND Internal Medicine Interventional Cardiology
DX: I25.119 Atherosclerotic heart disease of native coronary artery with unspecified angina pectoris (principal); E78.5 Hyperlipidemia, unspecified; R06.09 Other forms of dyspnea; I10 Essential (primary) hypertension; R07.9 Chest pain, unspecified